=== PATIENT | male | born 1940 | race Caucasian/White ===

== ENCOUNTER → 2016-10-15 13:44 | Outpatient (CLI) | payer MEDICARE, OTHER ==
[2016-06-19 09:52] VITALS: BMI 37.9
[~2016-10-15 13:44] MED LIST: ACETAMINOPHEN500 M1 PO; BAYER CHEWABLE81 MG PO; CINNAMON500 MG PO; COREG 3.1253.125 MG PO; ELIQUIS5 MG PO; FIBER THERAPY1368 GM PO; FISH OIL 1,2001 CAP PO; GARLIC PO; GARLIC1 CAP PO; GLIMEPIRIDE4 MG PO; GLUCOPHAGE1000 MG PO; GLUCOPHAGE500 MG PO; GLUCOTROL 5 MG T5 MG PO; HCTZ25 MG PO; HEMOCYTE PLUS C1 CAP PO; HUMALOG MIX 75/10 ML SC; HUMALOG MIX 75/23 ML SC; HYDROCHLOROTH12.5 M1; HYDROCHLOROTH12.5 M1 PO; HYDROCODONE-APA1 TAB PO; LASIX40 MG PO; LIPITOR40 MG PO; LOPRESSOR25 MG PO; PRAVACHOL20 MG PO; SAW PALMETTO450 MG PO; VITAMIN B-121000 MCG PO; VITAMIN D2000 UNIT PO; ZESTRIL10 MG PO; ZESTRIL40 MG PO; ZINC30 MG PO
[2016-10-15 15:02] LABS: ANION GAP 9.7 mmol/L (8-16); CALCIUM 9.1 mg/dL (8.5-10.1); CREATININE - SERUM 1.2 mg/dL (0.6-1.3); POTASSIUM - SERUM 3.7 mmol/L (3.5-5.1)
== END | disposition home or self-care (01) ==
LOC: D.RAD 13:44
PROVIDERS: Internal Medicine Interventional Cardiology
DX: I10 Essential (primary) hypertension (principal)

== ENCOUNTER 2016-10-24 05:27 | Outpatient (CLI) | payer MEDICARE, OTHER ==
[~2016-10-24] VITALS: Ht 195.6 cm; Wt 136.4 kg
[~2016-10-24 05:27] MED LIST changes: -LASIX40 MG PO
[2016-10-24] MEDS ORDERED: LASIX40 MG PO (06:37)
[2016-10-24 06:46] VITALS: BP 127/66; Ht 195.6 cm; Wt 136.4 kg
[2016-10-24 07:03] LABS: CALC OSMOLALITY 287 mosm/kg (275-300); CARBON DIOXIDE 31.1 mmol/L (21.0-32.0); CHLORIDE - SERUM 103 mmol/L (98-107); POTASSIUM - SERUM 3.8 mmol/L (3.5-5.1); SODIUM 143 mmol/L (136-145); UREA NITROGEN 14 mg/dL (7-18); eGFR NON AFRICAN AMERICAN 78 mL/min (90-120)
[2016-10-24 07:04] LABS: BASOPHILS 0.7 % (0.0-2.0); EOSINOPHILS 5.6 % (0-7); GLUCOSE 139 mg/dL (74-106); HEMATOCRIT 40.2 % (42.0-54.0); HEMOGLOBIN 12.5 g/dL (13.5-17.5); LYMPHOCYTES 24.8 % (15-50); MCH 26.9 pg (26.0-34.0); MCHC 31.1 g/dL (31.0-37.0); MCV 86.6 fL (80.0-100.0); MEAN PLATELET VOLUME 10.3 fL (7.4-10.4); MONOCYTES 12.1 % (2-11); NEUTROPHILS 56.8 % (40-80); RBC 4.64 10x6/uL (4.20-6.10); RDW 15.5 % (11.5-14.5); WBC 6.1 10x3/uL (4.8-10.8)
[2016-10-24 07:07] LABS: INR 1.12 (0.85-1.17); PROTIME 14.3 SECONDS (11.6-15.0)
[2016-10-24 07:08] LABS: APTT 30.5 SECONDS (22.8-39.4)
[2016-10-24 07:09] LABS: PLATELET COUNT 186 10x3/uL (130-400)
--- NOTE | 2016-10-24 09:15 | NUR ---
NO PROCEDURE OR MEDS GIVEN IN IR. SPOKE WITH MOISES BRAVO CONCERNING DC ORDERS, ORDERS RECEIVED. IV REMOVED INTACT.
--- NOTE | 2016-10-24 09:35 | NUR ---
DISCHARGED HOME WITH FAMILY.
== END 2016-10-24 09:35 | disposition home or self-care (01) ==
LOC: D.OPS 05:27 → D.SP 08:00 → D.OPS 08:00
PROVIDERS: General Practice
DX: J90 Pleural effusion, not elsewhere classified (principal); Z53.9 Procedure and treatment not carried out, unspecified reason

== ENCOUNTER → 2016-10-29 07:32 | Outpatient (CLI) | payer MEDICARE, OTHER ==
[2016-10-24 06:46] VITALS: BMI 35.6
[~2016-10-29 07:32] MED LIST changes: +LASIX40 MG PO
== END | disposition home or self-care (01) ==
LOC: D.RT 07:32
DX: R06.00 Dyspnea, unspecified (principal)

== ENCOUNTER → 2016-11-29 09:28 | Outpatient (CLI) | payer MEDICARE, OTHER ==
[2016-10-24 06:46] VITALS: BMI 35.6
== END | disposition home or self-care (01) ==
LOC: D.US 09:28
DX: I25.10 Atherosclerotic heart disease of native coronary artery without angina pectoris (principal); I10 Essential (primary) hypertension; E78.5 Hyperlipidemia, unspecified; Z87.891 Personal history of nicotine dependence

== ENCOUNTER → 2016-12-30 08:03 | Outpatient (CLI) | payer MEDICARE, OTHER ==
[2016-10-24 06:46] VITALS: BMI 35.6
--- NOTE | ~2016-12-30 | EC ---
PATIENT:JOHNY LECHUGA DATE OF SERVICE: 12/30/16 SEX: M MEDICAL RECORD: [id number] DATE OF : 44 LOCATION:[facility] AGE OF PATIENT: 76 ADMISSION DATE: 12/30/16 REFERRING PHYSICIAN: INTERPRETING PHYSICIAN: LIZZIE LÓPEZ MD ECHOCARDIOGRAM REPORT ECHO CHARGES 4 ECHO COMPLETE CLINICAL DIAGNOSIS: HTN ECHOCARDIOGRAPHIC MEASUREMENTS (adult normal given) AC root (d.<3.7cm) 4.0 LV Septum d (<1.2 cm> 1.3 Valve Excursion 1.6 LV Septum (systole) 2.1 Left Atria (s.<4.0cm> 4.8 LVPW d(<1.2cm) 1.3 RV (d.<2.3cm) 3.7 LVPW (sytole) 1.8 LV diastole(<5.6CM) 5.9 MV E-F(>70mm/sec) LV systole 4.7 LVOT Diameter 2.0 MV exc.(>10mm) Est.ejection fraction (50-75%) Pericardial Effusion N DOPPLER: LVIT A E 84.0 LA RVSP 39.0 LVOT 91.0 AOP1/2T Asc. Ao 161 RVOT 58.0 RA PA 68.0 AV Gradient Peak 10.4 AV Mean 4.7 AV Area 1.7 MV Gradient Peak 5.1 MV Mean 1.5 MV Area COMMENTS: Structural Steel Shop Supervisor: Karri DUMAS Billet Sawyer:Oliverio Cabrera TAPE# PACS DATE OF SERVICE: 12/30/2016 Echocardiogram FINDINGS: 1. Left ventricular chamber size is mildly dilated. Left ventricular systolic function is preserved. Overall ejection fraction estimated at 55%. 2. Left atrium is enlarged at 4.8 cm. Right atrium and right ventricular chamber sizes are as well mildly dilated. 3. Valvular structures have normal structure and motion. ECHOCARDIOGRAM REPORT [id number] JOHNY LECHUGA 4. Doppler interrogation reveals moderate mitral regurgitation, mild to moderate tricuspid regurgitation, no other valvular insufficiency or stenosis. Pulmonary systolic pressure is estimated at 39 mmHg. 5. No evidence of pericardial effusion or left ventricular thrombus. TRANSINT:[id number] Voice Confirmation ID: [id number] DOCUMENT ID: [id number] LIZZIE LÓPEZ MD CC: [id number] DICTATION DATE: 12/31/16 1128 NOTARY PUBLIC: 01/01/17 0203 DEP CLI 12/30/16 [facility] [address] [place] [address]
== END | disposition home or self-care (01) ==
LOC: D.ECHO 08:03
DX: I10 Essential (primary) hypertension (principal)

== ENCOUNTER → 2017-01-17 08:18 | Outpatient (CLI) | payer MEDICARE, OTHER ==
[2016-10-24 06:46] VITALS: BMI 35.6
[2017-01-17 10:04] LABS: ERYTHROCYTE SEDIMENTATION RATE 3 mm/hr (0-20)
[2017-01-20 09:09] LABS: ANA REFLEX - DIRECT Negative (Negative)
== END | disposition home or self-care (01) ==
LOC: D.RAD 08:18
PROVIDERS: Internal Medicine Pulmonary Disease
DX: J45.909 Unspecified asthma, uncomplicated (principal)

== ENCOUNTER → 2018-03-10 08:46 | Outpatient (CLI) | payer MEDICARE, OTHER ==
[2016-10-24 06:46] VITALS: BMI 35.6
[~2018-03-10 08:46] MED LIST changes: +K-TAB10 MEQ PO; +LISINOPRIL5 MG PO
== END | disposition home or self-care (01) ==
LOC: D.ECHO 08:46
DX: I25.10 Atherosclerotic heart disease of native coronary artery without angina pectoris (principal); I48.91 Unspecified atrial fibrillation; I50.9 Heart failure, unspecified; Z95.1 Presence of aortocoronary bypass graft; R06.02 Shortness of breath

== ENCOUNTER 2018-03-26 07:02 | Outpatient (CLI) | payer MEDICARE, OTHER ==
[~2018-03-26] VITALS: Ht 195.6 cm; Wt 144.1 kg
--- NOTE | ~2018-03-26 | TEE ---
PATIENT:JOHNY LECHUGA MEDICAL RECORD: [id number] LOCATION:[facility] AGE OF PATIENT: 77 ADMISSION DATE: 03/26/18 SEX: M REFERRING PHYSICIAN: INTERPRETING PHYSICIAN: FARA JOHNSON MD TRANSESOPHAGEAL ECHOCARDIOGRAM Date: 03/26/18 GRACIE CHARGE Y INDICATIONS: ATRIAL FIB, ASSESS FOR CLOTS PRE-CARDIOVERSION PREMEDICATIONS: PATIENT'S RESPONSE PROCEDURE DOPPLER MEASUREMENTS: LVIT LA PA RA LVOT RVOT Asc. Ao AV Gradient Peak AV Mean AV Area MV Gradient Peak MV Mean MV Area INTERPRETATION: Doppler: 2-D: NO CLOTS NOTED COLOR FLOW DOPPLER NORMAL SALINE STUDY: MISCELLANOUS: DIAGNOSIS: PLAN: Heart Nurse:4 Dr. Johnson Aquatics Instructor: Rizwana MONTES DE OCA COMMENTS: DATE OF SERVICE: PROCEDURE: Transesophageal echocardiogram. He was brought into the cardiac catheterization lab where a transesophageal echo probe was placed with the assistance of anesthesia. The patient's left atrium and left atrial appendage were visualized pre-cardioversion. There was shown to be no clots. The patient had no evidence of spontaneous echo contrast. The procedure was terminated to proceed with cardioversion. Cardioversion was then TRANSESOPHAGEAL ECHOCARDIOGRAM REPORT [id number] JOHNY LECHUGA performed times 3, each time resulting in reversion to sinus rhythm, but then ultimately converting back into atrial fibrillation. TRANSINT:[id number] Voice Confirmation ID: [id number] DOCUMENT ID: [id number] at 1702 CC: [id number] DICTATION DATE: 04/06/18 0814 HOUSEKEEPER/CUSTODIAN/LAUNDRY WORKER: 04/06/18 1200 DEP CLI 03/26/18 [place] [id number] [place] [id number]
--- NOTE | ~2018-03-26 | HEMODYNAMI ---
PATIENT:JOHNY LECHUGA MEDICAL RECORD: [id number] : 44 LOCATION:D.CAT ADMISSION DATE: 03/26/18 Generatedon:03/26/20189:36 Patient name: JOHNY LECHUGA Patient #: [id number] SSN: : 1940 Date of study: 03/26/2018 Page: Of Hemodynamic Procedure Report Patient Data Patient Demographics Procedure consent was obtained First Name: JOHNY Gender: Male Last Name: ALEXANDREA : 1940 [facility] Initial: C Age: 77 year(s) Patient #: [id number] Race: Additional ID: [id number] Contact details Address: [address] [place] [address] State: [place] City: [facility] [place] Zip code: [address] Past Medical History Allergies: No known allergies Admission Admission Data Admission Date: 03/26/2018 Admission Time: 7:02 Procedure Procedure Types Cath Procedure Diagnostic Procedure Cardioversion External GRACIE Procedure Description Procedure Date Procedure Date: 03/26/2018 Procedure Start Time: 9:19 Procedure End Time: 9:36 Procedure Staff Name Function Aj Rodrigues MD Performing Physician Bassam Canales MD Additional personnel Juan Lomeli RN Nurse Brian Douglass RT Monitor Percy [employer]on Ret[employer] Counselor Procedure Data Cath Procedure Fluoroscopy Diagnostic fluoroscopy Total fluoroscopy Time: 0 time: 0 min min Diagnostic fluoroscopy Total fluoroscopy dose: 0 dose: 0 mGy mGy Contrast Material Contrast Material Type Amount (ml) Isovue 300 0 Estimated blood loss: 0 ml Procedure Complications No complications Hemodynamics Rest Heart Rate: 72 (bpm) Snapshots Pre Cath Intra NCS Post Cath Vital Signs Time Heart Resp SPO2 etCO2 NIBP (mmHg) Rhythm Pain Sedation Rate (ipm) (%) (mmHg) Status Level (bpm) 9:12:02 80 11 97 0 148/96(127) NSR 0 (11) 10(A) , No pain 9:16:32 74 19 99 38.1 139/97(124) NSR 0 (11) 10(A) , No pain 9:20:56 84 31 99 47.8 113/89(100) NSR 0 (11) 10(A) , No pain 9:25:08 78 23 100 11.2 133/106(118) NSR 0 (11) 10(A) , No pain 9:29:32 79 19 100 36.6 125/87(108) NSR 0 (11) 10(A) , No pain 9:33:52 71 14 99 33.6 130/87(118) NSR 0 (11) 10(A) , No pain Procedure Log Time Note 8:45:45 Juan Lomeli RN sent for patient. Start room use. 9:03:57 Patient arrived from Pre/Post Procedure Room to CCL 3. Patient remains on bed/stretcher for procedure. 9:10:25 Time tracking: Regular hours (M-F 7:00 - 5:00) 9:10:29 Plan of Care:Hemodynamics will remain stable., Cardiac rhythm will remain stable., Comfort level will be maintained., Respiratory function will remain adequate., Patient/ family verbilizes understanding of procedure., Procedure tolerated without complication., Recovers from procedure without complications.. 9:10:31 Warm blankets applied, and tamiko hugger turned on for patient comfort. 9:10:32 Correct patient and procedure confirmed by team. 9:10:33 Signed procedure consent form obtained from patient. 9:10:33 ECG and BP/O2 sat monitors applied to patient. 9:10:35 Vital chart was started 9:10:41 [facility] Speech And Drama Teacher present for GRACIE. 9:10:43 Baseline sample Acquired. 9:10:49 Rhythm: atrial fibrillation 9:10:50 Full Disclosure recording started 9:11:06 H&P Date Dictated: 03/04/2018 Within 30 days and on chart., H&P Addendum completed by physician on day of procedure. (MUST COMPLETE FOR ALL OUTPATIENTS). 9:11:07 Pre-procedure instructions explained to patient. 9:11:07 Pre-op teaching completed and patient verbalized understanding. 9:11:10 Family in patients room. 9:11:12 Patient NPO since Midnight. 9:11:14 Is the patient allergic to Iodine/contrast media? No. 9:11:15 Is patient on blood thinner?Yes 9:11:18 ACC The patient was administered the following blood thiners within the last 24 hours: Coumadin 9:11:19 Patient diabetic? Yes. 9:11:21 If diabetic: On Metformin? Unknown 9:11:23 Previous problem with sedation/anesthesia? No ? 9:11:25 Snore? Yes 9:11:25 Sleep apnea? Yes 9:11:27 Deviated septum? No 9:11:27 Opens mouth fully? Yes 9:11:28 Sticks out tongue? Yes 9:11:51 Airway obstruction? Yes Asthma 9:11:56 Dentures? Yes OUT 9:12:01 Patient pain scale 0/10 ?. 9:12:04 IV patent on arrival in left forearm with 0.9% NaCl at O. 9:12:06 Lab results completed and on chart. 9:12:08 Alarms reviewed by RCastro N. 9:17:27 Bassam Canales MD present and monitoring patient for TIVA. 9:17:38 Quick combo pads placed on patients chest and back. 9:20:08 --------ALL STOP TIME OUT------ 9:20:09 Final Timeout: patient, procedure, and site verified with staff and physician. All members of the team are in agreement. 9:20:21 Physical assessment completed. ASA score P 2 - A patient with mild systemic disease as per Aj Rodrigues MD. 9:20:24 Sedation plan: TIVA Medication:Propofol 9:20:29 Procedure started. 9:20:32 GRACIE started. 9:22:55 GRACIE completed. 9:23:18 Defibrillator synced and charged to 250 Joules. 9:23:19 Shock delivered. 9:23:22 Unsuccessful cardioversion. 9:23:50 Defibrillator synced and charged to 300 Joules. 9:23:51 Shock delivered. 9:23:52 Unsuccessful cardioversion. 9:24:30 Defibrillator synced and charged to 300 Joules. 9:24:32 Shock delivered. 9:24:35 Pt converted to Sinus rhythm for approximately 45 seconds, then returned to Atrial Fib. 9:24:35 Unsuccessful cardioversion. 9:26:26 Procedure ended.(Physican Out) 9:28:00 Fluoroscopy time 00.00 minutes. 9:28:01 Fluoroscopy dose: 0 mGy 9:28: Flurop Dose total: 0 9:28:02 Contrast amount:Isovue 300 0ml. 9:28:08 Post-procedure physical assessment completed. ASA score P 2 - A patient with mild systemic disease as per Aj Rodrigues MD. 9:28:12 Post procedure rhythm: atrial fibrillation 9:28:14 Estimated blood loss: 0 ml 9:28:16 Post procedure instruction explained to patient.Patient verbalizes understanding. 9:28:16 Patient needs reinforcement of post procedure teaching. 9:28:27 Procedure type changed to Cath procedure, Diagnostic procedure, Cardioversion External, GRACIE 9:30:52 Quick Combo opened to sterile field. 9:31:19 Procedure Complication : No complications 9:32:15 Procedure and supply charges have been captured, reviewed, submitted and are correct. 9:36:11 Vital chart was stopped 9:36:11 See physician's report for complete and final results. 9:36:14 Report given to Pre/Post Procedure Room. 9:36:18 Patient transfered to Pre/Post Procedure Room with Stretcher. 9:36:21 Procedure ended. 9:36:21 Full Disclosure recording stopped 9:36:35 End room use (Document Last) Device Usage Item Manufacture Quantity Catalog Hospital Part Current Minimal Lot# / Name Number Charge Number Stock Stock Livia al# Code [employer] 1 [id number] Combo Signature Audit [place] Stage Time Signature Unsigned Intra-Procedure 03/26/2018 Brian Douglass 9:36:52 AM RT(R) Signatures Monitor : Brian Douglass RT Signature : Date : Time : [facility] [address] [facility] [place] [address]
--- NOTE | ~2018-03-26 | EC ---
PATIENT:JOHNY LECHUGA DATE OF SERVICE: SEX: M MEDICAL RECORD: [id number] DATE OF : 42 LOCATION:D.CAT AGE OF PATIENT: 77 ADMISSION DATE: 03/16/18 REFERRING PHYSICIAN: INTERPRETING PHYSICIAN: FARA JOHNSON MD ECHOCARDIOGRAM REPORT ECHO CHARGES Date: CLINICAL DIAGNOSIS: ECHOCARDIOGRAPHIC MEASUREMENTS (adult normal given) AC root (d.<3.7cm) cm LV Septum d (<1.2 cm> cm Valve Excursion cm LV Septum (systole) cm Left Atria (s.<4.0cm> cm LVPW d(<1.2cm) cm RV (d.<2.3cm) cm LVPW (sytole) cm LV diastole(<5.6CM) cm MV E-F(>70mm/sec) cm LV systole cm LVOT Diameter cm MV exc.(>10mm) cm Est.ejection fraction (50-75%) % DOPPLER: LVIT cm/sec A cm/sec E cm/sec LA cm/sec RVSP mmHg LVOT cm/sec AOP1/2T m/s Asc. Ao cm/sec RVOT cm/sec RA cm/sec PA cm/sec AV Gradient Peak mmHg AV Mean mmHg AV Area cm MV Gradient Peak mmHg MV Mean mmHg MV Area cm COMMENTS: Prevention Specialist: Operations Intelligence: MELANI# Pericardial Effusion DATE OF SERVICE: PROCEDURE: Transthoracic echocardiogram. FINDINGS: 1. Difficult pictures to image. 2. The overall ejection fraction appears near normal. Endocardial structures not well visualized. The ejection fraction appears to be 50% to 55%. No obvious regional wall motion abnormalities. 3. The left atrium is moderately dilated. ECHOCARDIOGRAM REPORT [id number] JOHNY LECHUGA 4. The aortic valve appears to be grossly normal with some sclerosis. Overall, there appears to be no obvious valvular or structural issues, but again it was difficult to visualize. RVSP was normal. The patient appears to have some evidence of hypertensive heart disease and there is evidence of possible anterior septal hypokinesis, but again it would be great to have contrasted echo to see the left ventricle better. Further evaluation may be needed for optimal visualization of the patient's endocardial structures. TRANSINT:[id number] Voice Confirmation ID: [id number] DOCUMENT ID: [id number] FARA JOHNSON MD at 0746 CC: [id number] DICTATION DATE: 03/16/18 1048 NUCLEAR EQUIPMENT TEST ENGINEER: 03/16/18 1301 PRE [facility] [address] [place] [id number]
[~2018-03-26 07:02] MED LIST changes: -K-TAB10 MEQ PO; -LISINOPRIL5 MG PO
[2018-03-26] MEDS ORDERED: LISINOPRIL5 MG PO (07:28)
[2018-03-26] MEDS ORDERED: K-TAB10 MEQ PO (07:31)
[2018-03-26 07:43] LABS: BASOPHILS 0.5 % (0-2); HEMATOCRIT 41.3 % (42.0-54.0); HEMOGLOBIN 13.6 g/dL (13.5-17.5); IMMATURE GRANULOCYTES 0.3 % (0-5); LYMPHOCYTES 26.3 % (15-50); MCH 29.8 pg (26.0-34.0); MCHC 32.9 g/dL (31.0-37.0); MCV 90.4 fL (80.0-100.0); MEAN PLATELET VOLUME 9.9 fL (7.4-10.4); MONOCYTES 11.5 % (2-11); NEUTROPHILS 58.4 % (40-80); PLATELET COUNT 148 10x3/uL (130-400); RBC 4.57 10x6/uL (4.20-6.10); RDW 14.3 % (11.5-14.5); WBC 5.7 10x3/uL (4.8-10.8)
[2018-03-26 07:44] VITALS: BP 146/73; Ht 195.6 cm; Wt 144.1 kg
[2018-03-26 07:55] LABS: INR 2.11 (0.85-1.17)
[2018-03-26 07:56] LABS: CALC OSMOLALITY 288 mosm/kg (275-300); CALCIUM 8.4 mg/dL (8.5-10.1); CARBON DIOXIDE 30.3 mmol/L (21.0-32.0); CHLORIDE - SERUM 105 mmol/L (98-107); GLUCOSE 113 mg/dL (74-106); POTASSIUM - SERUM 3.9 mmol/L (3.5-5.1); SODIUM 145 mmol/L (136-145); UREA NITROGEN 11 mg/dL (7-18); eGFR NON AFRICAN AMERICAN 77 mL/min (90-120)
== END 2018-03-26 11:40 | disposition home or self-care (01) ==
LOC: D.CATH 07:02
PROVIDERS: Internal Medicine Cardiovascular Disease
DX: I48.91 Unspecified atrial fibrillation (principal); I25.10 Atherosclerotic heart disease of native coronary artery without angina pectoris; I50.9 Heart failure, unspecified; R06.02 Shortness of breath; Z95.1 Presence of aortocoronary bypass graft

== ENCOUNTER → 2018-04-08 16:49 | Outpatient (CLI) | payer MEDICARE, OTHER ==
[2018-03-26 07:44] VITALS: BMI 37.7
[~2018-04-08 16:49] MED LIST changes: +K-TAB10 MEQ PO; +LISINOPRIL5 MG PO
[2018-04-08 17:50] LABS: ANION GAP 9.8 mmol/L (8-16); CALCIUM 8.6 mg/dL (8.5-10.1); CREATININE - SERUM 1.1 mg/dL (0.6-1.3); POTASSIUM - SERUM 3.8 mmol/L (3.5-5.1)
== END | disposition home or self-care (01) ==
LOC: D.LABREF 16:49
PROVIDERS: Internal Medicine Cardiovascular Disease
DX: I25.10 Atherosclerotic heart disease of native coronary artery without angina pectoris (principal)

== ENCOUNTER → 2018-04-15 14:12 | Outpatient (CLI) | payer MEDICARE, OTHER ==
[2018-03-26 07:44] VITALS: BMI 37.7
== END | disposition home or self-care (01) ==
LOC: D.MRI 14:12
DX: R20.2 Paresthesia of skin (principal)

== ENCOUNTER 2018-09-09 19:18 | Inpatient (IN) | payer MEDICARE, BC ==
[~2018-09-09] VITALS: Ht 195.6 cm; Wt 148.6 kg
--- NOTE | ~2018-09-09 | EC ---
PATIENT:JOHNY LECHUGA DATE OF SERVICE: 09/09/18 SEX: M MEDICAL RECORD: [id number] DATE OF : 42 LOCATION:D. D.120 AGE OF PATIENT: 77 ADMISSION DATE: 09/09/18 REFERRING PHYSICIAN: INTERPRETING PHYSICIAN: LIZZIE PICKARD MD ECHOCARDIOGRAM REPORT ECHO CHARGES 5 ECHO LIMITED Date: 09/11/18 CLINICAL DIAGNOSIS: AFIB HX OF CAD/CABG ECHOCARDIOGRAPHIC MEASUREMENTS (adult normal given) AC root (d.<3.7cm) cm LV Septum d (<1.2 cm> cm Valve Excursion cm LV Septum (systole) cm Left Atria (s.<4.0cm> 4.6 cm LVPW d(<1.2cm) cm RV (d.<2.3cm) 4.6 cm LVPW (sytole) cm LV diastole(<5.6CM) 5.1 cm MV E-F(>70mm/sec) cm LV systole 3.7 cm LVOT Diameter cm MV exc.(>10mm) cm Est.ejection fraction (50-75%) % DOPPLER: LVIT cm/sec A 20.0 cm/sec E 95.0 cm/sec LA cm/sec RVSP 24 mmHg LVOT 83 cm/sec AOP1/2T m/s Asc. Ao 110 cm/sec RVOT cm/sec RA cm/sec PA cm/sec AV Gradient Peak 4.86 mmHg AV Mean 2.68 mmHg AV Area 3.2 cm MV Gradient Peak 4.59 mmHg MV Mean 1.48 mmHg MV Area cm COMMENTS: Ordnance Engineer: Rizwana MONTES DE OCA Mfts: 1 Dr. Pickard TAPE# PACS Pericardial Effusion N DATE OF SERVICE: 09/11/2018 ECHOCARDIOGRAM DATE OF SERVICE: 09/11/2018 FINDINGS: 1. Left ventricle chamber size is within normal limits. Left ventricular systolic function is normal. Overall ejection fraction estimated at 60%. 2. Left atrium is enlarged at 4.6 cm. Right atrium and right ventricular ECHOCARDIOGRAM REPORT [id number] JOHNY LECHUGA chamber sizes are as well mildly dilated. 3. Valvular structures have normal structure and motion. 4. Doppler interrogation reveals trace tricuspid regurgitation, no other valvular insufficiency or stenosis. 5. No evidence of pericardial effusion or left ventricular thrombus. TRANSINT:[id number] Voice Confirmation ID: [id number] DOCUMENT ID: [id number] LIZZIE PICKARD MD CC: [id number] DICTATION DATE: 09/11/18 1547 CERTIFIED CODING SPECIALIST: 09/11/18 214 ADM IN [place] [address] [place] [id number]
[2018-09-09] MEDS ORDERED: JANTOVEN10 MG PO (19:30)
[2018-09-09] MEDS ORDERED: ENTRESTO 24 MG1 EACH PO (19:31)
[2018-09-09] MEDS ORDERED: COLACE100 MG PO (19:31)
[2018-09-09] MEDS ORDERED: COREG12.5 MG PO (19:32)
[2018-09-09 20:04] LABS: BASOPHILS 0.1 % (0-2); EOSINOPHILS 0.3 % (0-7); HEMATOCRIT 46.3 % (42.0-54.0); HEMOGLOBIN 15.1 g/dL (13.5-17.5); IMMATURE GRANULOCYTES 0.4 % (0-5); MCH 29.8 pg (26.0-34.0); MCHC 32.6 g/dL (31.0-37.0); MCV 91.3 fL (80.0-100.0); MEAN PLATELET VOLUME 10.6 fL (7.4-10.4); MONOCYTES 6.9 % (2-11); NEUTROPHILS 85.3 % (40-80); PLATELET COUNT 167 10x3/uL (130-400); RBC 5.07 10x6/uL (4.20-6.10); RDW 14.1 % (11.5-14.5); WBC 13.4 10x3/uL (4.8-10.8)
[2018-09-09 20:31] LABS: ALBUMIN 3.7 g/dL (3.4-5.0); ALKALINE PHOSPHATASE 73 U/L (46-116); ALT (SGPT) 26 U/L (10-68); BILIRUBIN - TOTAL 1.92 mg/dL (0.2-1.3); CALCIUM 8.7 mg/dL (8.5-10.1); CARBON DIOXIDE 28.9 mmol/L (21.0-32.0); CHLORIDE - SERUM 101 mmol/L (98-107); CREATININE - SERUM 1.1 mg/dL (0.6-1.3); POTASSIUM - SERUM 3.6 mmol/L (3.5-5.1); PROTEIN - SERUM 7.2 g/dL (6.4-8.2); SODIUM 142 mmol/L (136-145); UREA NITROGEN 14 mg/dL (7-18); eGFR NON AFRICAN AMERICAN 69 mL/min (90-120)
[2018-09-09 20:50] LABS: AMYLASE - SERUM 2314 U/L (25-115)
[2018-09-09 20:51] LABS: CALC OSMOLALITY 291 mosm/kg (275-300); GLUCOSE 236 mg/dL (74-106); LIPASE 11695 U/L (73-393); TROPONIN-I < 0.017 ng/mL (0.000-0.060)
[2018-09-09 21:03] VITALS: BP 183/95
[2018-09-09 22:50] LABS: APPEARANCE CLEAR (CLEAR); BILIRUBIN NEGATIVE (NEGATIVE); COLOR YELLOW (YELLOW); GLUCOSE 50 mg/dL (NEGATIVE); KETONE MODERATE mg/dL (NEGATIVE); NITRITE NEGATIVE (NEGATIVE); PROTEIN TRACE mg/dL (NEGATIVE); SPECIFIC GRAVITY 1.015 (1.005-1.020); UROBILINOGEN NORMAL (NORMAL)
[2018-09-10] VITALS: BP 170/87
--- NOTE | 2018-09-10 00:05 | NUR ---
NEW ADMIT TO DOCTOR SUNSHINE ON MED 3 FROM [facility] FOR ACUTE PANCREATITIS. PATIENT TRANSPORTED VIA STRETCHER. ACCOMPANIED BY ED STAFF. PATIENT ASSISTED IN TRANSFER TO BED. IV TO RIGHT FA INFUSING NS @ 100 ML/HR. PATIENT DENIES HAVING ANY NEEDS OR PAIN AT THIS TIME. PATIENT ORIENTED TO ROOM AND CALL LIGHT SYSTEM. PATIENT COOPERATIVE WITH ADMISSION ASSESSMENTS. BED IN LOWEST POSITION. SIDE RAILS UP. CALL LIGHT IN REACH. CONTINUE PLAN OF CARE.
[2018-09-10 00:24] VITALS: BP 170/87; BMI 38.0
--- NOTE | 2018-09-10 04:30 | NUR ---
PATIENT RESTING IN BED WITH EYES CLOSED. NO SIGNS OF DISTRESS. BED IN LOWEST POSITION. SIDE RAILS UP. CALL LIGHT IN REACH. CONTINUE PLAN OF CARE.
[2018-09-10 05:13] VITALS: BP 174/90
--- NOTE | 2018-09-10 07:15 | NUR ---
AM ROUNDS COMPLETED. INTRODUCED MYSELF TO PT PRIMARY RN FOR TODAYS SHIFT. SHIFT ASSESSMENT COMPLETED. PT IS A&O BUT NOT FEELING WELL AT ALL. PT STATES HE HAS BEEN THROWING UP ALL NIGHT AND IN A LOT OF PAIN. NO ORDERS FOR PAIN OR NAUSEA RELIEF ON EMAR. PT ALSO HAS HAD HTN ALL NIGHT AND THIS MORNING BP OF 190/107. PAGED PRIMARY AND NEW ORDERS REC'D WILL CPOC.
[2018-09-10 07:20] LABS: ALBUMIN 3.4 g/dL (3.4-5.0); ANION GAP 15.5 mmol/L (8-16); BILIRUBIN - TOTAL 2.39 mg/dL (0.2-1.3); CALCIUM 8.3 mg/dL (8.5-10.1); CARBON DIOXIDE 27.3 mmol/L (21.0-32.0); CREATININE - SERUM 1.3 mg/dL (0.6-1.3); MAGNESIUM - SERUM 1.7 mg/dL (1.8-2.4); PHOSPHOROUS 3.4 mg/dL (2.5-4.9); PROTEIN - SERUM 6.8 g/dL (6.4-8.2)
[2018-09-10 07:21] LABS: POTASSIUM - SERUM 4.8 mmol/L (3.5-5.1)
[2018-09-10 07:30] LABS: BASOPHILS 0.1 % (0-2); EOSINOPHILS 0 % (0-7); HEMATOCRIT 49.1 % (42.0-54.0); HEMOGLOBIN 16.1 g/dL (13.5-17.5); IMMATURE GRANULOCYTES 0.2 % (0-5); MCHC 32.8 g/dL (31.0-37.0); MCV 91.6 fL (80.0-100.0); MONOCYTES 6.5 % (2-11); NEUTROPHILS 88.2 % (40-80); PLATELET COUNT 187 10x3/uL (130-400); RBC 5.36 10x6/uL (4.20-6.10); RDW 14.4 % (11.5-14.5); WBC 15.7 10x3/uL (4.8-10.8)
[2018-09-10 07:47] VITALS: BP 190/107
--- NOTE | 2018-09-10 07:55 | NUR ---
LAB CALLED CRITICAL RESULTS. PTS AMYLASE AND LIPASE HOWEVER THEY ARE TRENDING DOWN. THIS IS EXPECTED WITH PTS DX OF PANCREATITIS. NOTIFIED PRIMARY, NO NEW ORDERS WILL CTM.
--- NOTE | 2018-09-10 09:57 | NUR ---
PTS HOME MEDS HAVE BEEN ORDERED. PAGED PHARMACY AND WAITING ON THEM TO BRING THEM UP. PT VOICED THANKS AND STATES THE PAIN MEDICATION HELP ALONG WITH THE NAUSEA. NO CURRENT NEEDS. WILL CTM.
[2018-09-10 10:04] LABS: CHOL - HDL RATIO 3.8 ratio (2.3-4.9); LDL-HDL RATIO 2.4 ratio (1.5-3.5)
--- NOTE | 2018-09-10 10:17 | NUR ---
NOTED AN ORDER FOR TELEMETRY MONITER HOWEVER ITS NOT ON PT. CALLED MONITER TECH AND JOSE STATES "WE DONT HAVE ANY" WILL NOTIFY PRIMARY AND FIND OUT IF ITS ABSOLUTELY NEEDED OR NOT.
[2018-09-10 10:25] LABS: APTT 41.5 SECONDS (22.8-39.4); INR 3.52 (0.85-1.17); PROTIME 34.5 SECONDS (11.6-15.0)
[2018-09-10 11:16] VITALS: BP 146/94
--- NOTE | 2018-09-10 12:41 | NUR ---
FSBS 255 PROVIDED PT WITH INSULIN PER SS. PT A&O LYING BACK IN BED RESTING QUIETLY. PT IS NPO FOR US OF GALLBLADDER. PT DENIES ANY CURRENT NEEDS. WILL CTM.
[2018-09-10 13:33] VITALS: BMI 37.9
[2018-09-10 15:28] VITALS: BP 194/95
--- NOTE | 2018-09-10 15:54 | NUR ---
PTS BP BACK UP AND HYPERTENSIVE. PT IN A LOT OF PAIN AND THROWING UP AGAIN. PT REQUESTED AND WAS PROVIDED WITH PRN PAIN MEDICATION ALONG WITH NAUSEA MEDICATION. PT STILL WAITING TO GO TO ULTRASOUND. NO CURRENT NEEDS. WILL CTM.
--- NOTE | 2018-09-10 18:42 | NUR ---
PT FINALLY RESTING QUIETLY. FAMILY CAME BY AND ASSISTED HIM WITH SHOWER. PT IS STILL NPO AND HAVING INTERMITT. VOMITING AND PAIN. PT IS A CHF PT AND NOT WANTING TO STAY CONNECTED TO THE FLUIDS AND HIS BP HAS BEEN RUNNING HIGH. WILL LEAVE DISCONNECTED FOR NOW AND DISCUSS WITH PRIMARY ABOUT DECREASING. NO CURRENT NEEDS. WILL CTM.
--- NOTE | 2018-09-11 01:48 | NUR ---
PATIENT IS ALERT AND ORIENTED, NPO, CALM AND COOPERATIVE, WILL CONTINUE TO MONITOR, CONTINUE PLAN OF CARE.
[2018-09-11 03:11] VITALS: BP 170/87
[2018-09-11 04:46] VITALS: BP 130/73
[2018-09-11 07:55] LABS: BASOPHILS 0.1 % (0-2); EOSINOPHILS 0.1 % (0-7); HEMATOCRIT 50.7 % (42.0-54.0); HEMOGLOBIN 16.4 g/dL (13.5-17.5); IMMATURE GRANULOCYTES 0.4 % (0-5); LYMPHOCYTES 6.1 % (15-50); MCH 29.7 pg (26.0-34.0); MCHC 32.3 g/dL (31.0-37.0); MCV 91.8 fL (80.0-100.0); MEAN PLATELET VOLUME 11.6 fL (7.4-10.4); NEUTROPHILS 83.3 % (40-80); PLATELET COUNT 182 10x3/uL (130-400); RBC 5.52 10x6/uL (4.20-6.10); RDW 14.6 % (11.5-14.5); WBC 16.1 10x3/uL (4.8-10.8)
--- NOTE | 2018-09-11 08:17 | NUR ---
PT RESTING IN BED, EYES OPEN. NO C/O PAIN. NO S/S OF DISTRESS NOTED. PT ALERT AND ORIENTED. UP AD ROSAS. Q6 HOUR FSBS. PT ON TELEMETRY ST 121 UNCONTROLLED AFIB. IV TO RIGHT FOREARM, SL. PT NPO. PT DENIES ANYTHING AT THIS TIME. CALL LIGHT IN REACH. WILL CONTINUE TO MONITOR.
[2018-09-11 08:22] LABS: ALBUMIN 2.7 g/dL (3.4-5.0); ANION GAP 21.2 mmol/L (8-16); BILIRUBIN - TOTAL 2.72 mg/dL (0.2-1.3); CARBON DIOXIDE 22.1 mmol/L (21.0-32.0); POTASSIUM - SERUM 4.3 mmol/L (3.5-5.1); PROTEIN - SERUM 6.1 g/dL (6.4-8.2)
[2018-09-11 08:24] LABS: CREATININE - SERUM 1.7 mg/dL (0.6-1.3)
[2018-09-11 08:31] LABS: INR 4.04 (0.85-1.17); PROTIME 38.5 SECONDS (11.6-15.0)
[2018-09-11 09:09] VITALS: BP 115/73
--- NOTE | 2018-09-11 10:30 | NUR ---
PT C/O PAIN 03/17, PAIN TO ABDOMEN. GAVE DILAUDID FOR PAIN. NO S/S OF DISTRESS NOTED. PT DENIES ANYTHING FURTHER. CALL LIGHT IN REACH. WILL CONTINUE TO MONITOR.
[2018-09-11 12:36] VITALS: Ht 195.6 cm; Wt 148.6 kg
--- NOTE | 2018-09-11 13:00 | NUR ---
PT HAS NEW ORDER FOR IVP DIGOXIN. PUSHED OVER 3 MINS VIA R.FA PIV. UNCONT. A.FIB ON MONITER AT 107. APICAL PULSE 108. DISCUSSED WITH PRIMARY NURSE. NO CURRENT NEEDS. WILL CTM.
--- NOTE | 2018-09-11 13:00 | NUR ---
PT HAS NEW ORDER FOR IVP DIGOXIN. PUSHED OVER 5 MINS VIA R.FA PIV. UNCONT. A.FIB ON MONITER AT 107. APICAL PULSE 108. DISCUSSED WITH PRIMARY NURSE. NO CURRENT NEEDS. WILL CTM.
[2018-09-11 14:21] VITALS: BP 117/63
--- NOTE | 2018-09-11 15:16 | NUR ---
SECOND DOSE OF DIGOXIN GIVEN VIA R.FA PIV. PUSHED OVER 5 MINS THEN FLUSHED SLOWLY WITH NS FLUSH. PT LYING BACK IN BED RESTING QUIETLY. DENIES ANY CURRENT PAIN OR NEEDS. CL IN REACH. DISCUSSED WITH PRIMARY NURSE.
[2018-09-11 16:45] VITALS: BP 127/87
--- NOTE | 2018-09-11 18:20 | NUR ---
LAST DOSE OF DIGOXIN GIVEN TO PT. PUSHED OVER 5 MINS AND THEN FLUSHED. PTS RATE IS FINALLY CONTROLLED AND RUNNING A.FIB @98. PT RESTING QUIETLY AND DENIES ANY CURRENT PAIN OR NEEDS. CL IN REACH. WILL CTM.
--- NOTE | 2018-09-11 18:41 | NUR ---
PT RESTING IN BED, EYES CLOSED. RESPIRATIONS EVEN AND UNLABORED. NO C/O PAIN. NO S/S OF DISTRESS NOTED. PT DENIES ANYTHING FURTHER AT THIS TIME. CALL LIGHT IN REACH. WILL CONTINUE TO MONITOR.
--- NOTE | 2018-09-11 19:30 | NUR ---
PT SITTING UP ON SIDE OF BED SHORT OF BREATH. PUT PT ON 2L OF 02. SAT-95% PT STATES HE FEELS LIGHT HEADED. EDUCATED PT TO RISE AND SIT SLOWLEY. PT INSTRUCTED TO USE CALL LIGHT WHEN GETTING UP. BED LOW CALL LIGHT WITHIN REACH. WILL CONTINUE TO MONITOR.
[2018-09-12] VITALS (7 sets, daily range): BP systolic 111–148; BP diastolic 68–90
--- NOTE | 2018-09-12 03:50 | NUR ---
PT ASLEEP RESP EVEN AND UNLABORED. BEDLOW AND CALL LIGHT IN REACH. PT WILL CALL FOR ASSIST WHEN NEEDED. WILL CPOC
--- NOTE | 2018-09-12 04:25 | NUR ---
PT RESTING ON SIDE WITH 2L OF O2 SAT. 98% PT RESPIRATIONS EVEN AND UNLABORED. BED LOW CALL LIGHT WITHIN REACH. WILL CONTINUE TO MONITOR.
[2018-09-12 07:34] LABS: BASOPHILS 0.1 % (0-2); EOSINOPHILS 0.2 % (0-7); HEMATOCRIT 48.2 % (42.0-54.0); HEMOGLOBIN 15.7 g/dL (13.5-17.5); IMMATURE GRANULOCYTES 0.2 % (0-5); LYMPHOCYTES 9.2 % (15-50); MCH 29.7 pg (26.0-34.0); MCHC 32.6 g/dL (31.0-37.0); MCV 91.1 fL (80.0-100.0); MEAN PLATELET VOLUME 11.2 fL (7.4-10.4); MONOCYTES 13.7 % (2-11); NEUTROPHILS 76.6 % (40-80); PLATELET COUNT 167 10x3/uL (130-400); RBC 5.29 10x6/uL (4.20-6.10); RDW 14.5 % (11.5-14.5)
[2018-09-12 07:37] LABS: WBC 11.7 10x3/uL (4.8-10.8)
[2018-09-12 07:52] LABS: ALBUMIN 2.6 g/dL (3.4-5.0); ANION GAP 17.8 mmol/L (8-16); BILIRUBIN - TOTAL 3.3 mg/dL (0.2-1.3); CALCIUM 8.1 mg/dL (8.5-10.1); CARBON DIOXIDE 25.4 mmol/L (21.0-32.0); CREATININE - SERUM 1.6 mg/dL (0.6-1.3); POTASSIUM - SERUM 4.2 mmol/L (3.5-5.1)
[2018-09-12 07:56] LABS: INR 2.51 (0.85-1.17); PROTIME 26.3 SECONDS (11.6-15.0)
--- NOTE | 2018-09-12 19:45 | NUR ---
REPORTS THROBBING HEADACHE WHEN SITTING UP, SOMETIMES ACCOMPANIED BY DIZZINESS. INSTRUCTED PT TO CHANGE POSITIONS SLOWLY. AND PRESS CALL LIGHT WHEN NEEDING ASSISTANCE TO AMBULATE.
[2018-09-13 04:23] VITALS: BP 147/82
[2018-09-13 08:31] LABS: INR 2.13 (0.85-1.17); PROTIME 23.1 SECONDS (11.6-15.0)
[2018-09-13 08:48] LABS: BASOPHILS 0.3 % (0-2); HEMATOCRIT 43.8 % (42.0-54.0); HEMOGLOBIN 14.4 g/dL (13.5-17.5); IMMATURE GRANULOCYTES 0.6 % (0-5); LYMPHOCYTES 8.9 % (15-50); MCH 29.7 pg (26.0-34.0); MCHC 32.9 g/dL (31.0-37.0); MCV 90.3 fL (80.0-100.0); MEAN PLATELET VOLUME 11.1 fL (7.4-10.4); MONOCYTES 13.7 % (2-11); NEUTROPHILS 75.5 % (40-80); PLATELET COUNT 187 10x3/uL (130-400); RBC 4.85 10x6/uL (4.20-6.10); WBC 10.6 10x3/uL (4.8-10.8)
[2018-09-13 08:49] LABS: ALBUMIN 2.4 g/dL (3.4-5.0); ANION GAP 14.4 mmol/L (8-16); BILIRUBIN - TOTAL 2.81 mg/dL (0.2-1.3); CALCIUM 7.5 mg/dL (8.5-10.1); CARBON DIOXIDE 27.4 mmol/L (21.0-32.0); CREATININE - SERUM 1.2 mg/dL (0.6-1.3); MAGNESIUM - SERUM 1.8 mg/dL (1.8-2.4); POTASSIUM - SERUM 3.8 mmol/L (3.5-5.1); PROTEIN - SERUM 5.7 g/dL (6.4-8.2)
--- NOTE | 2018-09-13 11:11 | NUR ---
PATIENT IN BED WITH AT BEDSIDE. SKIN W/D TO TOUCH, COLOR PINK, RESP. REGULAR AND EVEN AT 20. PATIENT C/O ABDOMINAL PAIN AND MEDICATED WITH DILAUDID 1MG IVP AND PATIENT TOLERATED WELL. C/L WITHIN REACH AND SR'S UP X'S 2
[2018-09-13 12:19] LABS: BILIRUBIN - DIRECT 0.44 mg/dL (0.00-0.30); BILIRUBIN - INDIRECT 2.07 mg/dL (0.00-1.00); BILIRUBIN - TOTAL 2.51 mg/dL (0.2-1.3)
[2018-09-13 14:07] VITALS: BP 142/76
[2018-09-13 14:08] VITALS: BP 134/72
--- NOTE | 2018-09-13 14:10 | NUR ---
PATIENT UP ON SOB, SKIN W/D TO TOUCH, COLOR PINK, RESP. REGULAR AND EVEN AT 20, O2 ON AT 2 L/M NC, PATIENT WEIGHED 332 LBS. PATIENT GIVEN URINAL AND INSTRUCTED TO USE FOR I & O. C/L WITHIN REACH AND SR'S UP X'S 2.
--- NOTE | 2018-09-13 14:17 | NUR ---
RECEIVED N.O. FROM DR. SUNSHINE TO D/C NS, SPOKE WITH SHANNON GREEN RE: EARLIER DISCUSSION WITH DR. MEDINA.
--- NOTE | 2018-09-13 16:19 | NUR ---
PATIENT IN BED LUIS PICKETT RN ATTEMPTED X'S 2 START IV, UNSUCCESSFUL. MARQUISE MENDOZA STARTED X'S 1 LEFT FOREARM AND DILAUDID 1MG GIVEN. C/L WITHIN REACH AND SR'S UP X'S 2.
--- NOTE | 2018-09-13 19:11 | NUR ---
CALLED [facility] AT [phone] TO TALK TO PATIENT'S DAUGHTER REGARDING SURGERY TIME, UNABLE TO GET DEFINATE TIME FOR SURGERY, L/M AT [facility] DAUGHTER TO CALL BACK.
--- NOTE | 2018-09-13 20:00 | NUR ---
MOUTH BREATHING/SNORING. EYES CLOSED. UNAROUSED BY VOICE, TAPPING ON SHOULDER, OR LIGHT. RAISED VOICE AND RUBBED PT'S SHOULDER, HE DROWSILY AWOKE. REPORTS MAJOR DIZZY SPELL WHEN SITTING UP. INSTRUCTED TO CHANGE POSITIONS SLOWLY. PT STATED HE HAD TO VOID, INSTRUCTED TO USE URINAL. PT VOIDED 200ML CLEAR YELLOW URINE, VERBALIZED EXTREME THIRST, DENIES PAIN AT THIS TIME, BUT HAVING DIFICULTY STAYING SAT UP IN BED. BP 162/97 WHILE SITTING. WILL CONTINUE TO MONITOR.
[2018-09-13 20:43] VITALS: BP 162/97
--- NOTE | 2018-09-14 00:01 | NUR ---
PT REPORTS HE PASSED A SOFT, SEMI-FORMED BM.
[2018-09-14 00:03] VITALS: BP 133/61
[2018-09-14 05:20] VITALS: BP 135/71
--- NOTE | 2018-09-14 07:59 | NUR ---
SUPERINTENDENT FISH HATCHERY AT BEDSIDE TO GET VITAL SIGNS, PT RESTING COMFORTABLY IN BED, DENIES ANY NEEDS AT THIS TIME. CALL LIGHT IN REACH, NAD NOTED.
[2018-09-14 08:06] LABS: HEMATOCRIT 44.3 % (42.0-54.0); HEMOGLOBIN 14.5 g/dL (13.5-17.5); MCH 29.4 pg (26.0-34.0); MCHC 32.7 g/dL (31.0-37.0); MCV 89.7 fL (80.0-100.0); MEAN PLATELET VOLUME 10.7 fL (7.4-10.4); PLATELET COUNT 181 10x3/uL (130-400); RBC 4.94 10x6/uL (4.20-6.10); WBC 11.9 10x3/uL (4.8-10.8)
[2018-09-14 08:24] VITALS: BP 141/77
[2018-09-14 08:24] LABS: INR 2.09 (0.85-1.17); PROTIME 22.8 SECONDS (11.6-15.0)
[2018-09-14 08:25] LABS: ALBUMIN 2.5 g/dL (3.4-5.0); ANION GAP 14.6 mmol/L (8-16); BILIRUBIN - TOTAL 2.34 mg/dL (0.2-1.3); CREATININE - SERUM 1.2 mg/dL (0.6-1.3); POTASSIUM - SERUM 3.6 mmol/L (3.5-5.1); PROTEIN - SERUM 6.1 g/dL (6.4-8.2)
[2018-09-14 09:36] LABS: LYMPHOCYTES 17 % (15-50); MONOCYTES 12 % (2-11); NEUTROPHILS 64 % (40-80); PLATELET ESTIMATE NORMAL; ROULEAUX OCC
--- NOTE | 2018-09-14 11:17 | NUR ---
PT RESTING IN BED. NO SIGNS OF DISTRESS. IV TO LEFT AC PATENT NO REDNESS OR TENDERNESS. ON TELEMETRY A FIB 89. ON 3L NC. HAS PALE/BLUISH HANDS. DENIES ANY NEED AT THIS TIME. CALL LIGHT IN REACH. BED LOW POSITION. FAMILY AT BEDSIDE. GOING TO SURGERY TODAY.
[2018-09-14 14:37] VITALS: BP 118/60
[2018-09-14 16:54] VITALS: BP 121/73
--- NOTE | 2018-09-14 19:30 | NUR ---
PT IS RESTING IN BED WITH EYES OPEN. ALERT AND ORIENTED X 3. DENIES ACUTE PAIN OR DISCOMFORT AT THIS TIME. NO NEEDS VOICED. BANDAIDS TO 4 INCISIONS ON ABD ARE CDI. NO DRAINAGE NOTED. 02 IS ON @ 3LPM PER NC. NO SOB NOTED. RIGHT IJ SALINE LOCK NOTED. TELEMETRY UNIT IS ON AND INTACT. SR'S ARE UP X 2 IN BED. CALL LIGHT AND BEDSIDE TABLE ARE WITHIN EASY REACH.
[2018-09-14 20:00] VITALS: BP 126/79
--- NOTE | 2018-09-14 21:35 | NUR ---
PT IS RESTING IN BED WATCHING TV. NO NEEDS VOICED.
[2018-09-15] VITALS: BP 142/70
--- NOTE | 2018-09-15 00:01 | NUR ---
RESTING IN BED WITH EYES CLOSED.
--- NOTE | 2018-09-15 03:44 | NUR ---
PT RESTING IN BED WITH EYES CLOSED. NO DISTRESS NOTED.
[2018-09-15 04:00] VITALS: BP 147/77
[2018-09-15 07:27] VITALS: BP 130/74
[2018-09-15 07:48] LABS: BASOPHILS 0.3 % (0-2); EOSINOPHILS 0.9 % (0-7); HEMATOCRIT 41.2 % (42.0-54.0); HEMOGLOBIN 13.5 g/dL (13.5-17.5); IMMATURE GRANULOCYTES 1.5 % (0-5); MCH 29.2 pg (26.0-34.0); MCHC 32.8 g/dL (31.0-37.0); MCV 89.2 fL (80.0-100.0); MEAN PLATELET VOLUME 11.4 fL (7.4-10.4); MONOCYTES 16.2 % (2-11); NEUTROPHILS 74.1 % (40-80); PLATELET COUNT 209 10x3/uL (130-400); RBC 4.62 10x6/uL (4.20-6.10); WBC 11.5 10x3/uL (4.8-10.8)
[2018-09-15 08:01] LABS: INR 2.11 (0.85-1.17)
[2018-09-15 08:27] LABS: ALBUMIN 2.3 g/dL (3.4-5.0); ANION GAP 12.8 mmol/L (8-16); BILIRUBIN - TOTAL 1.87 mg/dL (0.2-1.3); CALCIUM 7.5 mg/dL (8.5-10.1); CARBON DIOXIDE 30.7 mmol/L (21.0-32.0); CREATININE - SERUM 1.2 mg/dL (0.6-1.3); POTASSIUM - SERUM 3.5 mmol/L (3.5-5.1); PROTEIN - SERUM 5.2 g/dL (6.4-8.2)
--- NOTE | 2018-09-15 10:22 | NUR ---
PT RESTING IN BED. NO SIGNS OF DISTRESS. IV TO RIGHT JUGULAR PATENT NO REDNESS OR TENDERNESS. HAS 4 LAP SITES TO ABDOMEN DRESSING CLEAN AND INTACT. HAS GENERALIZED EDEMA. ON 3L NC. COMPLAINS OF PAIN. MEDS GIVEN WILL MONITOR. DENIES ANY NEED AT THIS TIME. CALL LIGHT IN REACH. BED LOW POSITION. FAMILY WAS AT BEDSIDE.
[2018-09-15 11:43] VITALS: BP 118/73
--- NOTE | 2018-09-15 12:38 | NUR ---
Diet has advanced to full liquid and pt reports tolerating liquids well. Pt eating 100% of diet Encouraged Ensure and ordered Ensure to help increase protein intake while on liquid diet. REC: Advance diet once medically feasible RD following
[2018-09-15 15:13] VITALS: BP 130/75
--- NOTE | 2018-09-15 16:52 | MORECARE ---
CASE MANAGEMENT DISCHARGE SUMMARY PATIENT: JOHNY LECHUGA UNIT: [id number] ADM DATE: 09/09/18 AGE: 77 : 42 SEX: M ROOM/BED: D.1209 AUTHOR: BERTIN,DOC PHYSICIAN: REFERRING PHYSICIAN: NICK SUNSHINE MD DATE OF SERVICE: 09/15/18 Discharge Plan Patient Name: JOHNY LECHUGA Facility: [facility]:[place] : 1940 Planned Disposition: Anticipated Discharge Date: 09/15/18 Discharge Date: Expected LOS: 6 Initial Reviewer: [id number] Initial Review Date: 09/09/2018 Generated: 09/15/18 5:51 pm Comments DCP- Discharge Planning Updated by [email or web address]: Jenni Alvarenga on 09/15/18 3:[address] Patient Name: JOHNY LECHUGA Admission Status: ER Accout number: [id number] Admission Date: 09-09-2018 : 1940 Admission Diagnosis:ACUTE PANCREATITIS WITHOUT NECROSIS OR INFECTION, UNSP Attending: NICK SUNSHINE Current LOS: 6 Anticipated DC Date: 09-15-2018 Planned Disposition: Primary Insurance: MEDICARE A & B Discharge Planning Comments: CM MET WITH PATIENT ABOUT DC PLANNING/NEEDS. DENIES NEEDS. STATES IS INDEPENDANT AND LIVES WITH . STATES WILL PICK HIM UP AT TIME OF DC. IM SIGNED. CM WILL FOLLOW AND ASSIST NEEDED WITH DC PLANNING/NEEDS. Preparation Room Manager: Jenni Alvarenga DCP- Discharge Planning Updated by [id number]: Cynthia Carballo on 09/14/18 12:[address] LATE ENTRY 1000 CM WENT TO PATIENT'S ROOM TO DISCUSS DISCHARGE PLANNING NEEDS. HE HAD BEEN TAKEN TO THE OR FOR A LAP LOUANN. NO FAMILY IN THE ROOM. NURSE STATES THEY HAD BEEN AT THE BEDSIDE EARLIER. 1200- PATIENT NOR FAMILY HAS RETURNED TO THE ROOM 1315- PATIENT NOR FAMILY HAS RETURNED TO THE ROOM. DCPIA - Discharge Planning Initial Assessment Updated by [id number]: Jenni Alvarenga on 09/15/18 4:43 pm * Is the patient Alert and Oriented? No * PCP UNSURE * Pharmacy [facility] [address] * Preadmission Environment Home with Family * ADLs Independent * Equipment Cane CPAP Walker * List name and contact numbers for known caregivers / representatives who currently or will assist patient after discharge: ROSA ISELA, ROSIO, * Please name any agencies selected above. STATES NONE * Additional services required to return to the preadmission environment? No * Can the patient safely return to the preadmission environment? Yes * Has this patient been hospitalized within the prior 30 days at any hospital? No Coverage Notice Reviewer: [id number] - Jenni Alvarenga Notice Issued Date-Time: 09/15/2018 16:40 Notice Type: IM Discharge Notice Notice Delivered To: Patient Relationship to Patient: Self Landscape And Yardwork Laborer Name: Delivery Method: HAND - Hand Delivered Laila Days: Prior Verbal Notification: Recipient Understood Notice: Yes Recipient Signature: Yes Med Rec Note Co-signed by Attending: Coverage Notice Comment: Patient Name: JOHNY LECHUGA Page 20611 at 1652 All edits/amendments must be made on the electronic document DICTATION DATE: 09/15/181650 FLORAL ARTIST: IKE 09/15/181650 RPT#: [id number] DC DATE: STATUS: ADM IN [facility] [address] [place] [address] END OF REPORT
--- NOTE | 2018-09-15 18:08 | NUR ---
TALKED TO EVER LEMON INFOMRED HER THAT FAMILY WANTS TO TALK TO DOCTOR REGARDING PT BEING DISCHARGE. EVER LEMON STATED THAT SHE WOULD HAVE DR. YI CALL THE UNIT AND TALK TO THE FAMILY.
[2018-09-15 20:00] VITALS: BP 142/61
--- NOTE | 2018-09-15 20:05 | NUR ---
PT C/O PAIN AT ABD AREA, A LEVEL OF 5, NORCO 5 GIVEN.
--- NOTE | 2018-09-16 00:09 | NUR ---
CHECKED PT BLOOD SUGAR, 296, HUMULIN R 6 UNITS GIVEN.
[2018-09-16 00:20] VITALS: BP 112/65
--- NOTE | 2018-09-16 01:34 | NUR ---
PATIENT RESTING IN BED WITH EYES CLOSED AND NO S/S OF DISTRESS. BREATHING EVEN AND UNLABORED. BED IN LOWEST POSITION AND CALL LIGHT WITHIN REACH. WILL CONTINUE TO MONITOR.
[2018-09-16 04:00] VITALS: BP 125/75
[2018-09-16 05:15] LABS: IGG SUBCLASS 1 300 mg/dL (248-810); IGG SUBCLASS 2 195 mg/dL (130-555); IGG SUBCLASS 3 34 mg/dL (15-102); IGG SUBCLASS 4 35 mg/dL (2-96)
--- NOTE | 2018-09-16 07:17 | NUR ---
PT RESTING QUIETLY. CL IN REACH. PT DENIES NEEDS OR PAIN. BED IN LOW POSITION. SIDE RAILS X2. WCTM
[2018-09-16 08:24] VITALS: BP 118/71
--- NOTE | 2018-09-16 08:49 | MORECARE ---
CASE MANAGEMENT DISCHARGE SUMMARY PATIENT: JOHNY LECHUGA UNIT: [id number] ADM DATE: 09/09/18 AGE: 77 : 42 SEX: M ROOM/BED: D.1209 AUTHOR: BERTIN,DOC PHYSICIAN: REFERRING PHYSICIAN: NICK SUNSHINE MD DATE OF SERVICE: 09/16/18 Discharge Plan Patient Name: JOHNY LECHUGA Facility: [facility]:[place] : 1940 Planned Disposition: Anticipated Discharge Date: 09/15/18 Discharge Date: Expected LOS: 6 Initial Reviewer: [id number] Initial Review Date: 09/09/2018 Generated: 09/16/18 9:49 am Comments DCP- Discharge Planning Updated by [email or web address]: eJnni Alvarenga on 09/15/18 3:[address] Patient Name: JOHNY LECHUGA Admission Status: ER Accout number: [id number] Admission Date: 09-09-2018 : 1940 Admission Diagnosis:ACUTE PANCREATITIS WITHOUT NECROSIS OR INFECTION, UNSP Attending: NICK SUNSHINE Current LOS: 6 Anticipated DC Date: 09-15-2018 Planned Disposition: Primary Insurance: MEDICARE A & B Discharge Planning Comments: CM MET WITH PATIENT ABOUT DC PLANNING/NEEDS. DENIES NEEDS. STATES IS INDEPENDANT AND LIVES WITH . STATES WILL PICK HIM UP AT TIME OF DC. IM SIGNED. CM WILL FOLLOW AND ASSIST NEEDED WITH DC PLANNING/NEEDS. Administrative Assistant Coordinator: Jenni Alvarenga DCP- Discharge Planning Updated by [email or web address]: Cynthia Carballo on 09/14/18 12:[address] LATE ENTRY 1000 CM WENT TO PATIENT'S ROOM TO DISCUSS DISCHARGE PLANNING NEEDS. HE HAD BEEN TAKEN TO THE OR FOR A LAP LOUANN. NO FAMILY IN THE ROOM. NURSE STATES THEY HAD BEEN AT THE BEDSIDE EARLIER. 1200- PATIENT NOR FAMILY HAS RETURNED TO THE ROOM 1315- PATIENT NOR FAMILY HAS RETURNED TO THE ROOM. DCPIA - Discharge Planning Initial Assessment Updated by [id number]: Jenni Alvarenga on 09/15/18 4:43 pm * Is the patient Alert and Oriented? No * PCP UNSURE * Pharmacy [facility] [address] * Preadmission Environment Home with Family * ADLs Independent * Equipment Cane CPAP Walker * List name and contact numbers for known caregivers / representatives who currently or will assist patient after discharge: ROSA ISELA, ROSIO, * Please name any agencies selected above. STATES NONE * Additional services required to return to the preadmission environment? No * Can the patient safely return to the preadmission environment? Yes * Has this patient been hospitalized within the prior 30 days at any hospital? No Coverage Notice Reviewer: [id number] - Jenni Alvarenga Notice Issued Date-Time: 09/15/2018 16:40 Notice Type: IM Discharge Notice Notice Delivered To: Patient Relationship to Patient: Self Scientific Software Developer Name: Delivery Method: HAND - Hand Delivered Laila Days: Prior Verbal Notification: Recipient Understood Notice: Yes Recipient Signature: Yes Med Rec Note Co-signed by Attending: Coverage Notice Comment: Last DP export: 09/15/18 3:52 pm Patient Name: JOHNY LECHUGA Page [phone] at 0849 All edits/amendments must be made on the electronic document DICTATION DATE: 09/16/18847 PACK OPERATOR: IKE 09/16/18847 RPT#: [id number] DC DATE: STATUS: ADM IN [facility] [address] [place] [address] END OF REPORT
--- NOTE | 2018-09-16 10:28 | NUR ---
Rehab Prescreening Consult recieved and the chart has been reviewed. This patient had a discharge order for yesterday, but notes are unclear as to the reason he did not discharge. Tried to call the CM Jenni to discuss patient without success, will continue to attempt. The patient has not had a PT eval so unsure of his therapy needs at this time. To meet Medicare criteria a patient must have the need for at least 2 therapies such as PT/OT or ST as well as the medical necessity to be seen by a physician 3 times a week. Zita Bell RN Clinical Liaison, Rehab
--- NOTE | 2018-09-16 11:25 | MORECARE ---
CASE MANAGEMENT DISCHARGE SUMMARY PATIENT: JOHNY LECHUGA UNIT: [id number] ADM DATE: 09/09/18 AGE: 77 : 42 SEX: M ROOM/BED: D.1209 AUTHOR: BERTIN,DOC PHYSICIAN: REFERRING PHYSICIAN: NICK SUNSHINE MD DATE OF SERVICE: 09/16/18 Discharge Plan Patient Name: JOHNY LECHUGA Facility: [facility]:[place] : 1940 Planned Disposition: Anticipated Discharge Date: 09/15/18 Discharge Date: Expected LOS: 6 Initial Reviewer: [id number] Initial Review Date: 09/09/2018 Generated: 09/16/18 12:25 pm Comments DCP- Discharge Planning Updated by [id number]: Jenni Alvarenga on 09/15/18 3:[address] Patient Name: JOHNY LECHUGA Admission Status: ER Accout number: [id number] Admission Date: 09-09-2018 : 1940 Admission Diagnosis:ACUTE PANCREATITIS WITHOUT NECROSIS OR INFECTION, UNSP Attending: NICK SUNSHINE Current LOS: 6 Anticipated DC Date: 09-15-2018 Planned Disposition: Primary Insurance: MEDICARE A & B Discharge Planning Comments: CM MET WITH PATIENT ABOUT DC PLANNING/NEEDS. DENIES NEEDS. STATES IS INDEPENDANT AND LIVES WITH . STATES WILL PICK HIM UP AT TIME OF DC. IM SIGNED. CM WILL FOLLOW AND ASSIST NEEDED WITH DC PLANNING/NEEDS. Pet Groomer: Jenni Alvarenga DCP- Discharge Planning Updated by [email or web address]: Cnythia Carballo on 09/14/18 12:[address] LATE ENTRY 1000 CM WENT TO PATIENT'S ROOM TO DISCUSS DISCHARGE PLANNING NEEDS. HE HAD BEEN TAKEN TO THE OR FOR A LAP LOUANN. NO FAMILY IN THE ROOM. NURSE STATES THEY HAD BEEN AT THE BEDSIDE EARLIER. 1200- PATIENT NOR FAMILY HAS RETURNED TO THE ROOM 1315- PATIENT NOR FAMILY HAS RETURNED TO THE ROOM. DCPIA - Discharge Planning Initial Assessment Updated by [id number]: Jenni Alvarenga on 09/15/18 4:43 pm * Is the patient Alert and Oriented? No * PCP UNSURE * Pharmacy [facility] [address] * Preadmission Environment Home with Family * ADLs Independent * Equipment Cane CPAP Walker * List name and contact numbers for known caregivers / representatives who currently or will assist patient after discharge: ROSA ISELA, ROSIO, * Please name any agencies selected above. STATES NONE * Additional services required to return to the preadmission environment? No * Can the patient safely return to the preadmission environment? Yes * Has this patient been hospitalized within the prior 30 days at any hospital? No Coverage Notice Reviewer: [id number] - Jenni Alvarenga Notice Issued Date-Time: 09/15/2018 16:40 Notice Type: IM Discharge Notice Notice Delivered To: Patient Relationship to Patient: Self Train Controller Name: Delivery Method: HAND - Hand Delivered Laila Days: Prior Verbal Notification: Recipient Understood Notice: Yes Recipient Signature: Yes Med Rec Note Co-signed by Attending: Coverage Notice Comment: Last DP export: 09/16/18 7:49 am Patient Name: JOHNY LECHUGA Page 79860 at 1125 All edits/amendments must be made on the electronic document DICTATION DATE: 09/16/18 112 INSURANCE BILLING CLERK: IKE 09/16/18 1124 RPT#: [id number] DC DATE: STATUS: ADM IN [facility] [address] [place] [address] END OF REPORT
--- NOTE | 2018-09-16 11:54 | NUR ---
PT LYING IN BED WATCHING TV. FAMILY IN ROOM. CL IN REACH. PT DENIES NEEDS OR PAIN. WCTM
--- NOTE | 2018-09-16 12:32 | MORECARE ---
CASE MANAGEMENT DISCHARGE SUMMARY PATIENT: JOHNY LECHUGA UNIT: [id number] ADM DATE: 09/09/18 AGE: 77 : 42 SEX: M ROOM/BED: D.1209 AUTHOR: BERTINDOC PHYSICIAN: REFERRING PHYSICIAN: NICK SUNSHINE MD DATE OF SERVICE: 09/16/18 Discharge Plan Patient Name: JOHNY LECHUGA Facility: [facility]:[place] : 1940 Planned Disposition: Anticipated Discharge Date: 09/15/18 Discharge Date: Expected LOS: 6 Initial Reviewer: [id number] Initial Review Date: 09/09/2018 Generated: 09/16/18 1:32 pm Comments DCP- Discharge Planning Updated by [email or web address]: Jenni Alvarenga on 09/16/18 11:[address] Patient Name: JOHNY LECHUGA Admission Status: ER Accout number: [id number] Admission Date: 09-09-2018 : 1940 Admission Diagnosis:ACUTE PANCREATITIS WITHOUT NECROSIS OR INFECTION, UNSP Attending: NICK SUNSHINE Current LOS: 7 Anticipated DC Date: 09-15-2018 Planned Disposition: Primary Insurance: MEDICARE A & B Discharge Planning Comments: CM MET WITH PATIENT AND FAMILY, HE STATES WANTS [facility]. CM CALLED CHRISTOS AT [facility] AND FAXED HER DOCUMENTS FOR REFERRAL. CHRISTOS [facility] SHOULD BE ABLE TO SEE HIM BY TOMORROW. AWAITING HER CALL FOR FINAL VERIFICATION. CM WILL FOLLOW AND ASSSIST NEEDE DWI DC PLANNING/NEEDS. [facility] PHONE NUMBER IS [phone]. Tobacco Classer: Jenni Alvarenga DCP- Discharge Planning Updated by [email or web address]: Jenni Alvarenga on 09/15/18 3:[address] Patient Name: JOHNY LECHUGA Admission Status: ER Accout number: [id number] Admission Date: 09-09-2018 : 1940 Admission Diagnosis:ACUTE PANCREATITIS WITHOUT NECROSIS OR INFECTION, UNSP Attending: NICK SUNSHINE Current LOS: 6 Anticipated DC Date: 09-15-2018 Planned Disposition: Primary Insurance: MEDICARE A & B Discharge Planning Comments: CM MET WITH PATIENT ABOUT DC PLANNING/NEEDS. DENIES NEEDS. STATES IS INDEPENDANT AND LIVES WITH . [facility] WILL PICK HIM UP AT TIME OF DC. IM SIGNED. CM WILL FOLLOW AND ASSIST NEEDED WITH DC PLANNING/NEEDS. Tobacco Classer: Jenni Colette DCP- Discharge Planning Updated by [id number]: Cynthia Perezs on 09/14/18 12:[address] LATE ENTRY 1000 CM WENT TO PATIENT'S ROOM TO DISCUSS DISCHARGE PLANNING NEEDS. HE HAD BEEN TAKEN TO THE OR FOR A LAP LOUANN. NO FAMILY IN THE ROOM. NURSE STATES THEY HAD BEEN AT THE BEDSIDE EARLIER. 1200- PATIENT NOR FAMILY HAS RETURNED TO THE ROOM 1315- PATIENT NOR FAMILY HAS RETURNED TO THE ROOM. DCPIA - Discharge Planning Initial Assessment Updated by [email or web address]: Jenni Colette on 09/15/18 4:43 pm * Is the patient Alert and Oriented? No * PCP UNSURE * Pharmacy [facility] [address] * Preadmission Environment Home with Family * ADLs Independent * Equipment Cane CPAP Walker * List name and contact numbers for known caregivers / representatives who currently or will assist patient after discharge: ROSIO NATARAJAN, * Please name any agencies selected above. STATES NONE * Additional services required to return to the preadmission environment? No * Can the patient safely return to the preadmission environment? Yes * Has this patient been hospitalized within the prior 30 days at any hospital? No External Providers External Provider: [facility] Next Contact Date: Service Request Date: Service Type: Resolution: Reviewer: Comments: Coverage Notice Reviewer: [email or web address] Rama Alvarenga Notice Issued Date-Time: 09/15/2018 16:40 Notice Type: IM Discharge Notice Notice Delivered To: Patient Relationship to Patient: Self Tool And Die Technician Name: Delivery Method: HAND - Hand Delivered Laila Days: Prior Verbal Notification: Recipient Understood Notice: Yes Recipient Signature: Yes Med Rec Note Co-signed by Attending: Coverage Notice Comment: Reviewer: [id number] Rama Alvarenga Notice Issued Date-Time: 09/16/2018 12:23 Notice Type: Patient Choice Letter Notice Delivered To: Family Member Relationship to Patient: Spouse Tool And Die Technician Name: Delivery Method: HAND - Hand Delivered Laila Days: Prior Verbal Notification: Recipient Understood Notice: Yes Recipient Signature: Yes Med Rec Note Co-signed by Attending: Coverage Notice Comment: SAMMY SANTIZO export: 09/16/18 10:25 am Patient Name: JOHNY LECHUGA Page 13936 at 1232 All edits/amendments must be made on the electronic document DICTATION DATE: 09/16/18 1231 SOCIOLOGY INSTRUCTOR: IKE 09/16/18 1231 RPT#: [id number] DC DATE: STATUS: ADM IN [facility] [address] [place] [address] END OF REPORT
--- NOTE | 2018-09-16 12:45 | NUR ---
PT RECIEVED FLU VACINE. PT DENIES NEEDS OR PAIN. CL IN REACH.
--- NOTE | 2018-09-16 13:51 | NUR ---
RIGHT IJ CVL DCD. NO BLEEDING NOTED.
--- NOTE | 2018-09-16 14:20 | NUR ---
PT HAD IJ REMOVED BY RN. CL IN REACH. NO BLEEDING NOTED. IN ROOM. WILL DC VERY SOON.
--- NOTE | 2018-09-16 14:47 | NUR ---
PT STATES THAT THEY HAVE TO WAIT ON DAUGHTER TO PICK THEM UP AND SHE WONT BE HERE UNTIL 1630. PAPERWORK SIGNED AND PT READY TO DC. CL IN REACH.
--- NOTE | 2018-09-16 15:29 | NUR ---
PT HAS BEEN DISCHARGE AND IV TAKEN OUT. PT WAITING ON RIDE, DENIES ANY NEEDS AT THIS TIME. RESP EVEN AND NONLABORED, CALL LIGHT IN REACH, FAMILY AT BEDSIDE, NAD NOTED.
--- NOTE | 2018-09-16 15:47 | NUR ---
PT LEFT FLOOR VIA WHEELCHAIR WITH DAUGHTER AND . PAPERWORK WITH PT AND DENIES NEEDING ANY MEDS CALLED INTO PHARMACY.
--- NOTE | 2018-09-18 15:52 | MORECARE ---
CASE MANAGEMENT DISCHARGE SUMMARY PATIENT: JOHNY LECHUGA UNIT: [id number] ADM DATE: 09/09/18 AGE: 77 : 42 SEX: M ROOM/BED: D.1209 AUTHOR: BERTINDOC PHYSICIAN: REFERRING PHYSICIAN: NICK SUNSHINE MD DATE OF SERVICE: 09/18/18 Discharge Plan Patient Name: JOHNY LECHUGA Facility: [facility]:[place] : 1940 Planned Disposition: Anticipated Discharge Date: 09/15/18 Discharge Date: 09/16/2018 Expected LOS: 6 Initial Reviewer: [id number] Initial Review Date: 09/09/2018 Generated: 09/18/18 4:52 pm Comments DCP- Discharge Planning Updated by [email or web address]: Jenni Alvarenga on 09/16/18 11:[address] Patient Name: JOHNY LECHUGA Admission Status: ER Accout number: [id number] Admission Date: 09-09-2018 : 1940 Admission Diagnosis:ACUTE PANCREATITIS WITHOUT NECROSIS OR INFECTION, UNSP Attending: NICK SUNSHINE Current LOS: 7 Anticipated DC Date: 09-15-2018 Planned Disposition: Primary Insurance: MEDICARE A & B Discharge Planning Comments: CM MET WITH PATIENT AND FAMILY, HE STATES WANTS [facility]. CM CALLED CHRISTOS AT [facility] AND FAXED HER DOCUMENTS FOR REFERRAL. [facility] SHOULD BE ABLE TO SEE HIM BY TOMORROW. AWAITING HER CALL FOR FINAL VERIFICATION. CM WILL FOLLOW AND ASSSIST NEEDE DWI DC PLANNING/NEEDS. [facility] PHONE NUMBER IS [phone]. Oil Tanker Captain: Jenni Alvarenga DCP- Discharge Planning Updated by [email or web address]: Jenni Alvarenga on 09/15/18 3:[address] Patient Name: JOHNY LECHUGA Admission Status: ER Accout number: [id number] Admission Date: 09-09-2018 : 1940 Admission Diagnosis:ACUTE PANCREATITIS WITHOUT NECROSIS OR INFECTION, UNSP Attending: NICK SUNSHINE Current LOS: 6 Anticipated DC Date: 09-15-2018 Planned Disposition: Primary Insurance: MEDICARE A & B Discharge Planning Comments: CM MET WITH PATIENT ABOUT DC PLANNING/NEEDS. DENIES NEEDS. STATES IS INDEPENDANT AND LIVES WITH . STATES WILL PICK HIM UP AT TIME OF DC. IM SIGNED. CM WILL FOLLOW AND ASSIST NEEDED WITH DC PLANNING/NEEDS. Oil Tanker Captain: Jenni Alvarenga DCP- Discharge Planning Updated by [id number]: Cynthiahumera Carballo on 09/14/18 12:[address] LATE ENTRY 1000 CM WENT TO PATIENT'S ROOM TO DISCUSS DISCHARGE PLANNING NEEDS. HE HAD BEEN TAKEN TO THE OR FOR A LAP [place]ANN. NO FAMILY IN THE ROOM. NURSE STATES THEY HAD BEEN AT THE BEDSIDE EARLIER. 1200- PATIENT NOR FAMILY HAS RETURNED TO THE ROOM 1315- PATIENT NOR FAMILY HAS RETURNED TO THE ROOM. DCPIA - Discharge Planning Initial Assessment Updated by [id number]: Jenni Alvarenga on 09/15/18 4:43 pm * Is the patient Alert and Oriented? No * PCP UNSURE * Pharmacy [facility] [address] * Preadmission Environment Home with Family * ADLs Independent * Equipment Cane CPAP Walker * List name and contact numbers for known caregivers / representatives who currently or will assist patient after discharge: ROSIO NATARAJAN, * Please name any agencies selected above. STATES NONE * Additional services required to return to the preadmission environment? No * Can the patient safely return to the preadmission environment? Yes * Has this patient been hospitalized within the prior 30 days at any hospital? No Coverage Notice Reviewer: [id number] Rama Alvarenga Notice Issued Date-Time: 09/15/2018 16:40 Notice Type: IM Discharge Notice Notice Delivered To: Patient Relationship to Patient: Self Intranet Developer Name: Delivery Method: HAND - Hand Delivered Laila Days: Prior Verbal Notification: Recipient Understood Notice: Yes Recipient Signature: Yes Med Rec Note Co-signed by Attending: Coverage Notice Comment: Reviewer: [id number] Rama Alvarenga Notice Issued Date-Time: 09/16/2018 12:23 Notice Type: Patient Choice Letter Notice Delivered To: Family Member Relationship to Patient: Spouse Intranet Developer Name: Delivery Method: HAND - Hand Delivered Laila Days: Prior Verbal Notification: Recipient Understood Notice: Yes Recipient Signature: Yes Med Rec Note Co-signed by Attending: Coverage Notice Comment: SAMMY SANTIZO export: 09/16/18 11:32 am Patient Name: JOHNY LECHUGA Page 54806 at 1552 All edits/amendments must be made on the electronic document DICTATION DATE: 09/18/181551 VACUUM APPLICATOR OPERATOR: IKE 09/18/181551 RPT#: [id number] DC DATE:09/16/18 STATUS: DIS IN [facility] [address] [place] [address] END OF REPORT
== END 2018-09-16 15:49 | disposition home health service (06) | DRG 417 ==
LOC: D.ER 19:18 → D.M3 22:06 → D.EDHOLD 22:06 → D.M3 22:23
PROVIDERS: Family Medicine; Internal Medicine Gastroenterology; Surgery; ADMIT Internal Medicine Nephrology
PROC: 0FT44ZZ Resection of Gallbladder, Percutaneous Endoscopic Approach (ICD-10-PCS; principal; 2018-09-14 14:15)
DX: K82.8 Other specified diseases of gallbladder (principal); K85.90 Acute pancreatitis without necrosis or infection, unspecified; I13.0 Hypertensive heart and chronic kidney disease with heart failure and stage 1 through stage 4 chronic kidney disease, or unspecified chronic kidney disease; N17.9 Acute kidney failure, unspecified; R18.8 Other ascites; E11.22 Type 2 diabetes mellitus with diabetic chronic kidney disease; N18.3 Chronic kidney disease, stage 3 (moderate); I50.9 Heart failure, unspecified; E83.42 Hypomagnesemia; I48.91 Unspecified atrial fibrillation; Z79.01 Long term (current) use of anticoagulants; E78.5 Hyperlipidemia, unspecified; G47.33 Obstructive sleep apnea (adult) (pediatric); I25.10 Atherosclerotic heart disease of native coronary artery without angina pectoris; K74.60 Unspecified cirrhosis of liver

== ENCOUNTER 2018-09-19 15:45 | Emergency (ER) | payer MEDICARE, BC ==
[~2018-09-19] VITALS: Ht 195.6 cm; Wt 138.6 kg
[~2018-09-19 15:45] MED LIST changes: +COLACE100 MG PO; +COREG12.5 MG PO; +ENTRESTO 24 MG1 EACH PO; +JANTOVEN10 MG PO
[2018-09-19 15:51] VITALS: Ht 195.6 cm; Wt 138.6 kg
[2018-09-19] MEDS ORDERED: JANTOVEN10 MG PO (15:54)
[2018-09-19 16:58] LABS: BASOPHILS 0.3 % (0-2); HEMATOCRIT 39.3 % (42.0-54.0); HEMOGLOBIN 13.2 g/dL (13.5-17.5); IMMATURE GRANULOCYTES 0.6 % (0-5); LYMPHOCYTES 10.3 % (15-50); MCH 29.4 pg (26.0-34.0); MCHC 33.6 g/dL (31.0-37.0); MCV 87.5 fL (80.0-100.0); MEAN PLATELET VOLUME 10.6 fL (7.4-10.4); MONOCYTES 8.2 % (2-11); NEUTROPHILS 79.6 % (40-80); RBC 4.49 10x6/uL (4.20-6.10); RDW 13.6 % (11.5-14.5); WBC 14.3 10x3/uL (4.8-10.8)
[2018-09-19 17:03] LABS: PLATELET COUNT 274 10x3/uL (130-400)
[2018-09-19 17:21] LABS: ALBUMIN 2.1 g/dL (3.4-5.0); ALKALINE PHOSPHATASE 86 U/L (46-116); ALT (SGPT) 34 U/L (10-68); AMYLASE - SERUM 158 U/L (25-115); BILIRUBIN - TOTAL 0.83 mg/dL (0.2-1.3); CALCIUM 8.2 mg/dL (8.5-10.1); CARBON DIOXIDE 27.8 mmol/L (21.0-32.0); CHLORIDE - SERUM 99 mmol/L (98-107); CREATININE - SERUM 1.1 mg/dL (0.6-1.3); LIPASE 992 U/L (73-393); PROTEIN - SERUM 5.9 g/dL (6.4-8.2); SODIUM 138 mmol/L (136-145); TROPONIN-I < 0.017 ng/mL (0.000-0.060); UREA NITROGEN 12 mg/dL (7-18); eGFR NON AFRICAN AMERICAN 69 mL/min (90-120)
[2018-09-19 17:32] LABS: CALC OSMOLALITY 280 mosm/kg (275-300); GLUCOSE 185 mg/dL (74-106)
[2018-09-19 17:36] LABS: POTASSIUM - SERUM 2.7 mmol/L (3.5-5.1)
[2018-09-19 17:40] LABS: PROTIME 18.6 SECONDS (11.6-15.0)
[2018-09-19 17:41] LABS: APTT 29.2 SECONDS (22.8-39.4); INR 1.56 (0.85-1.17)
[2018-09-19 18:38] LABS: APPEARANCE CLEAR (CLEAR); COLOR YELLOW (YELLOW)
[2018-09-19 18:39] LABS: BILIRUBIN NEGATIVE (NEGATIVE); GLUCOSE NEGATIVE (NEGATIVE); KETONE NEGATIVE (NEGATIVE); NITRITE NEGATIVE (NEGATIVE); PROTEIN NEGATIVE (NEGATIVE); UROBILINOGEN NORMAL (NORMAL)
[2018-09-19] MEDS ORDERED: K-DUR20 MEQ PO (18:45)
[2018-09-19 19:02] VITALS: BP 136/78
== END 2018-09-19 19:03 | disposition home or self-care (01) ==
LOC: D.ER 15:45
PROVIDERS: Emergency Medicine
DX: L76.82 Other postprocedural complications of skin and subcutaneous tissue (principal); S30.1XXA Contusion of abdominal wall, initial encounter; X58.XXXA Exposure to other specified factors, initial encounter; Y93.89 Activity, other specified; Y92.89 Other specified places as the place of occurrence of the external cause; E87.6 Hypokalemia; Z79.01 Long term (current) use of anticoagulants

== ENCOUNTER → 2018-11-09 06:47 | Outpatient (CLI) | payer MEDICARE, BC ==
[2018-09-19 15:51] VITALS: BMI 36.2
[~2018-11-09 06:47] MED LIST changes: +K-DUR20 MEQ PO
== END | disposition home or self-care (01) ==
LOC: D.US 06:47
PROVIDERS: ATTEND Family Medicine
DX: R10.9 Unspecified abdominal pain (principal)

== ENCOUNTER → 2018-11-25 12:28 | Outpatient (CLI) | payer MEDICARE, BC ==
[2018-09-19 15:51] VITALS: BMI 36.2
--- NOTE | ~2018-11-25 | EC ---
PATIENT:JOHNY LECHUGA DATE OF SERVICE: 11/25/18 SEX: M MEDICAL RECORD: [id number] DATE OF : 44 LOCATION:[facility] AGE OF PATIENT: 78 ADMISSION DATE: 11/25/18 REFERRING PHYSICIAN: INTERPRETING PHYSICIAN: LIZZIE PICKARD MD ECHOCARDIOGRAM REPORT ECHO CHARGES 4 ECHO COMPLETE Date: 11/25/18 CLINICAL DIAGNOSIS: CARDIOMYOPATHY ECHOCARDIOGRAPHIC MEASUREMENTS (adult normal given) AC root (d.<3.7cm) 4.4 cm LV Septum d (<1.2 cm> 1.4 cm Valve Excursion 1.9 cm LV Septum (systole) 1.8 cm Left Atria (s.<4.0cm> 4.4 cm LVPW d(<1.2cm) 1.7 cm RV (d.<2.3cm) 4.4 cm LVPW (sytole) 2.0 cm LV diastole(<5.6CM) 5.2 cm MV E-F(>70mm/sec) cm LV systole 3.8 cm LVOT Diameter 2.1 cm MV exc.(>10mm) 1.9 cm Est.ejection fraction (50-75%) % DOPPLER: LVIT cm/sec A 76.0 cm/sec E 84.0 cm/sec LA cm/sec RVSP 17 mmHg LVOT 130 cm/sec AOP1/2T m/s Asc. Ao 153 cm/sec RVOT 75 cm/sec RA cm/sec PA 105 cm/sec AV Gradient Peak 9.40 mmHg AV Mean 5.07 mmHg AV Area 3.0 cm MV Gradient Peak 6.20 mmHg MV Mean 2.05 mmHg MV Area cm COMMENTS: Digging Machine Operator: Rizwana MONTES DE OCA Aerial Installer: 1 Dr. Pickard TAPE# PACS Pericardial Effusion N DATE OF SERVICE: 11/25/2018 PROCEDURE: Echocardiogram. FINDINGS: 1. Left ventricular chamber size is within normal limits. Left ventricular systolic function is normal. Overall ejection fraction estimated at 55%. 2. Left atrium is enlarged at 4.4 cm. Right atrium and right ventricular chamber sizes are as well mildly dilated. 3. Valvular structures have normal structure and motion. ECHOCARDIOGRAM REPORT [id number] JOHNY LECHUGA 4. Doppler interrogation reveals only trace to mild mitral regurgitation, no other valvular insufficiency or stenosis. Pulmonary systolic pressure is normal at 17 mmHg. 5. No evidence of pericardial effusion or left ventricular thrombus. TRANSINT:[id number] Voice Confirmation ID: [id number] DOCUMENT ID: [id number] LIZZIE PICKARD MD CC: [id number] DICTATION DATE: 11/30/18 1024 DATA ANALYST REPORT WRITER: 11/30/18 1132 DEP CLI 11/25/18 [facility] [address] [place] [id number]
== END | disposition home or self-care (01) ==
LOC: D.HCCARDIO 12:28
PROVIDERS: ATTEND Internal Medicine Interventional Cardiology
DX: I42.9 Cardiomyopathy, unspecified (principal)

== ENCOUNTER 2021-02-22 22:52 | Inpatient (IN) | payer MEDICARE, BC ==
[~2021-02-22] VITALS: Ht 195.6 cm; Wt 139.3 kg
[2021-02-22] MEDS ORDERED: PLAVIX75 MG PO (23:39)
[2021-02-22] MEDS ORDERED: ISOSORBIDE MONO30 M1 PO (23:39)
[2021-02-22] MEDS ORDERED: LIPITOR10 MG PO (23:39)
[2021-02-23] VITALS (25 sets, daily range): BP systolic 103–171; BP diastolic 45–104; Ht 195.6 cm; Wt 139.3 kg
[2021-02-23 00:09] LABS: BASOPHILS 0.6 % (0-2); EOSINOPHILS 1.6 % (0-7); HEMATOCRIT 40.6 % (42.0-54.0); HEMOGLOBIN 13.3 g/dL (13.5-17.5); LYMPHOCYTES 15.6 % (15-50); MCH 28.7 pg (26.0-34.0); MCHC 32.7 g/dL (31.0-37.0); MCV 87.9 fL (80.0-100.0); MEAN PLATELET VOLUME 8.3 fL (7.4-10.4); MONOCYTES 12.2 % (2-11); RBC 4.62 10x6/uL (4.20-6.10); RDW 14.8 % (11.5-14.5); WBC 9.3 10x3/uL (4.8-10.8)
[2021-02-23 00:14] LABS: PLATELET COUNT 146 10x3/uL (130-400)
[2021-02-23 00:17] LABS: CALC OSMOLALITY 282 mosm/kg (275-300); CALCIUM 8.2 mg/dL (8.5-10.1); CARBON DIOXIDE 29.3 mmol/L (21.0-32.0); CHLORIDE - SERUM 103 mmol/L (98-107); CREATININE - SERUM 1.1 mg/dL (0.6-1.3); GLUCOSE 110 mg/dL (74-106); POTASSIUM - SERUM 3.6 mmol/L (3.5-5.1); SODIUM 141 mmol/L (136-145); UREA NITROGEN 14 mg/dL (7-18); eGFR NON AFRICAN AMERICAN 69 mL/min (90-120)
[2021-02-23 00:18] LABS: APTT 42.6 SECONDS (22.8-39.4)
[2021-02-23 00:19] LABS: INR 2.24 (0.85-1.17)
[2021-02-23 00:33] LABS: ALBUMIN 3.4 g/dL (3.4-5.0); ALKALINE PHOSPHATASE 87 U/L (30-120); ALT (SGPT) 18 U/L (10-68); BILIRUBIN - TOTAL 2.83 mg/dL (0.2-1.3); MAGNESIUM - SERUM 1.8 mg/dL (1.8-2.4); PRO BNP 894 pg/mL (0-450); PROTEIN - SERUM 7.1 g/dL (6.4-8.2); THYROID STIMULATING HORMONE 2.78 uIU/mL (0.36-3.74); TROPONIN-I < 0.017 ng/mL (0.000-0.060)
[2021-02-23 01:34] LABS: CKMB 0.4 U/L (0.0-3.6); CREATINE KINASE 87 UL (21-232)
--- NOTE | 2021-02-23 01:57 | NUR ---
PT GIVEN URINAL. UPON ATTEMPTING TO USE URINAL WHILE IN BED PT HAD SYNCOPAL EPISODE THAT LASTED APPROX 1 MIN, MD CALLED TO BEDSIDE. PT PLACED ON NRB AND MOVED TO TRAUMA ROOM. PT REGAINED CONSCIOUSNESS, AAO, RR EVEN AND UNLABORED AND VSS.
--- NOTE | 2021-02-23 07:45 | NUR ---
DR HENSON ROUNDED AND WANTS TO TAKE PT TO SURGERY TO PLACE [place]. CONSENTS OBTAINED FROM PT.
[2021-02-23 08:28] LABS: BASOPHILS 0.2 % (0-2); EOSINOPHILS 0.7 % (0-7); HEMOGLOBIN 13.1 g/dL (13.5-17.5); MCH 28.7 pg (26.0-34.0); MCHC 32.7 g/dL (31.0-37.0); MCV 87.7 fL (80.0-100.0); MEAN PLATELET VOLUME 8.5 fL (7.4-10.4); MONOCYTES 9.8 % (2-11); NEUTROPHILS 78.3 % (40-80); PLATELET COUNT 131 10x3/uL (130-400); RBC 4.56 10x6/uL (4.20-6.10); RDW 14.7 % (11.5-14.5); WBC 9.1 10x3/uL (4.8-10.8)
[2021-02-23 08:37] LABS: ALBUMIN 3.2 g/dL (3.4-5.0); BILIRUBIN - TOTAL 4.16 mg/dL (0.2-1.3); CALCIUM 8.3 mg/dL (8.5-10.1); CARBON DIOXIDE 28.5 mmol/L (21.0-32.0); CREATININE - SERUM 1.1 mg/dL (0.6-1.3); POTASSIUM - SERUM 3.5 mmol/L (3.5-5.1); PROTEIN - SERUM 6.7 g/dL (6.4-8.2)
[2021-02-23 08:41] LABS: INR 1.82 (0.85-1.17); PROTIME 19.6 SECONDS (11.6-15.0)
--- NOTE | 2021-02-23 08:59 | NUR ---
FAMILY CALLED AND UPDATED.
--- NOTE | 2021-02-23 11:16 | NUR ---
PT PREOPPED. CURRENTLY ON BEDPAN TRYING TO HAVE BM.
--- NOTE | 2021-02-23 12:39 | NUR ---
PT TAKEN BACK TO SURGERY. DENTURES PUT IN CUP AND PLACED ON WINDOW LEDGE.
--- NOTE | 2021-02-23 14:50 | NUR ---
PT BACK FROM SURGERY. [place] DONE. DRESSING TO LEFT FRONTAL HEAD C/D/I. PT DENIES PAIN CURRENTLY. VITAL SIGNS PUT IN PER PROTOCOL. PT ALERT AND ORIENTED.
--- NOTE | 2021-02-23 15:02 | NUR ---
CALLED FAMILY AND UPDATED ON PT'S STATUS.
[2021-02-24] VITALS (19 sets, daily range): BP systolic 89–159; BP diastolic 49–101
[2021-02-24 04:57] LABS: BASOPHILS 0.1 % (0-2); EOSINOPHILS 0 % (0-7); HEMATOCRIT 39.3 % (42.0-54.0); LYMPHOCYTES 7.3 % (15-50); MCV 87.8 fL (80.0-100.0); MEAN PLATELET VOLUME 8.8 fL (7.4-10.4); MONOCYTES 5.6 % (2-11); RBC 4.48 10x6/uL (4.20-6.10); RDW 14.5 % (11.5-14.5)
[2021-02-24 05:03] LABS: PLATELET COUNT 176 10x3/uL (130-400)
[2021-02-24 05:16] LABS: ALBUMIN 3.2 g/dL (3.4-5.0); ANION GAP 15.6 mmol/L (8-16); BILIRUBIN - TOTAL 3.5 mg/dL (0.2-1.3); CALCIUM 8.8 mg/dL (8.5-10.1); CARBON DIOXIDE 25.6 mmol/L (21.0-32.0); CREATININE - SERUM 1.2 mg/dL (0.6-1.3)
[2021-02-24 05:19] LABS: POTASSIUM - SERUM 4.2 mmol/L (3.5-5.1)
--- NOTE | 2021-02-24 08:00 | NUR ---
ALERT AND ORIENTED WITH INTERMITTANT CONFUSION RELATED TO BLOOD SUGAR MONITORING AND INSULIN GIVEN WITH SEVERAL ATTEMPTS TO REDIRECT. HAND GRASP EQUAL. DENIES ANY PAIN OR DISCOMFORT. IV TO LEFT F/A S/L WITH NO S/SOF INFECTION/INFILTRATION. PERRLA WITH DRESSING INTACT TO SCALP.
--- NOTE | 2021-02-24 10:00 | NUR ---
DR. HENSON HERE WITH NO NEW ORDERS NOTED. EPPERSON CATH PATENT WITH DULCE MARIA URINE NOTED. 02 4L N/C. DRESSING TO SCALP INTACT WITH NO CHANGE IN COGNITION. FALL PRECAUTIONS IN PLACE AND MONITORING.
--- NOTE | 2021-02-24 12:00 | NUR ---
FAMILY HERE FOR VISIT WITH INSULIN GIVEN PER PROTOCOL. DRESSING TO SCALP INTACT. DENEIS ANY PAIN OR DISCOMFORT.
--- NOTE | 2021-02-24 14:00 | NUR ---
ASSITED ON BED PAIN W/O RESULTS. CONTINUED CRITICAL CARE MONITORING AND DENIES ANY NEEDS. ENCOURAGED TO USE CALL LIGHT FOR ASSIST
--- NOTE | 2021-02-24 16:00 | NUR ---
NO CHANGE IN COGNITION. ASSISTED TO BED ESQUEDA W/O BM. DECREASE AGITIATION NOTED AND COOPERATIVE. CONTINUED CRITIAL CARE
--- NOTE | 2021-02-24 18:02 | NUR ---
DR. HENSON NOTIFIED OF PATIENT CONDITION WITH ORDER TO TRANSFER TO FLOOR. REPORT CALLED TO ADRIANA ZARAGOZA AT TIME OF TRANSFER.
[2021-02-25] VITALS: BP 113/71
--- NOTE | 2021-02-25 03:00 | NUR ---
I have reviewed this patient and I concur with the Shift Assessment completed by the Licensed Practical Nurse today this shift.
[2021-02-25 04:00] VITALS: BP 139/82
[2021-02-25 06:23] LABS: BASOPHILS 0.4 % (0-2); EOSINOPHILS 1.3 % (0-7); HEMATOCRIT 37.8 % (42.0-54.0); HEMOGLOBIN 12.5 g/dL (13.5-17.5); LYMPHOCYTES 17.7 % (15-50); MCV 87.9 fL (80.0-100.0); MONOCYTES 9.7 % (2-11); NEUTROPHILS 70.9 % (40-80); PLATELET COUNT 187 10x3/uL (130-400); RDW 14.5 % (11.5-14.5); WBC 9.4 10x3/uL (4.8-10.8)
[2021-02-25 06:32] LABS: ANION GAP 10.8 mmol/L (8-16); BILIRUBIN - TOTAL 2.14 mg/dL (0.2-1.3); CALCIUM 8.4 mg/dL (8.5-10.1); CREATININE - SERUM 1.1 mg/dL (0.6-1.3); POTASSIUM - SERUM 3.8 mmol/L (3.5-5.1); PROTEIN - SERUM 6.5 g/dL (6.4-8.2)
[2021-02-25 08:27] VITALS: BP 139/75
--- NOTE | 2021-02-25 09:00 | NUR ---
ASSESSMENT PER FLOW SHEET. PATIENT IS WITHOUT DISTRESS.FALL PREVENTION WITH BED ALARM. DOOR OPEN.
--- NOTE | 2021-02-25 11:37 | NUR ---
REHAB PRESCREEN RECEIVED. PATIENTS PHYSICAL THERAPY EVAL IS PENDING. I WILL LOOK BACK IN LATER TO SEE IF COMPLETED AND FINISH HIS CHART SCREEN. IF APPROPRIATE, I WILL START HIS ELECTRONIC SCREEN. THANK YOU FOR THE REFERRAL. PADMA LOAIZA RN CLINICAL LIAISON, INPATIENT REHAB.
[2021-02-25 13:02] VITALS: BP 159/67
[2021-02-25 17:27] VITALS: BP 118/86
--- NOTE | 2021-02-25 17:56 | NUR ---
EPPERSON DC'D WITH 900CC OF YELLOW URINE IN BAG. CATH TIP INTACT.
[2021-02-25 20:00] VITALS: BP 125/74
[2021-02-26] VITALS: BP 128/72
--- NOTE | 2021-02-26 03:00 | NUR ---
I have reviewed this patient and I concur with the Shift Assessment completed by the Licensed Practical Nurse today this shift.
[2021-02-26 04:00] VITALS: BP 84/60
[2021-02-26 06:10] LABS: BASOPHILS 0.5 % (0-2); EOSINOPHILS 4.4 % (0-7); HEMOGLOBIN 12.6 g/dL (13.5-17.5); LYMPHOCYTES 22.3 % (15-50); MCH 28.5 pg (26.0-34.0); MCHC 32.4 g/dL (31.0-37.0); MCV 88.1 fL (80.0-100.0); MEAN PLATELET VOLUME 8.4 fL (7.4-10.4); MONOCYTES 13.6 % (2-11); NEUTROPHILS 59.2 % (40-80); PLATELET COUNT 185 10x3/uL (130-400); RBC 4.42 10x6/uL (4.20-6.10); RDW 14.8 % (11.5-14.5)
[2021-02-26 06:32] LABS: ALBUMIN 2.9 g/dL (3.4-5.0); ANION GAP 10.1 mmol/L (8-16); BILIRUBIN - TOTAL 2.16 mg/dL (0.2-1.3); CALCIUM 8.4 mg/dL (8.5-10.1); CARBON DIOXIDE 30.8 mmol/L (21.0-32.0); CREATININE - SERUM 1.1 mg/dL (0.6-1.3); MAGNESIUM - SERUM 2.1 mg/dL (1.8-2.4); POTASSIUM - SERUM 3.9 mmol/L (3.5-5.1); PROTEIN - SERUM 6.3 g/dL (6.4-8.2)
[2021-02-26 09:25] VITALS: BP 151/79
[2021-02-26 12:45] VITALS: BP 130/77
--- NOTE | 2021-02-26 13:50 | MORECARE ---
CASE MANAGEMENT DISCHARGE SUMMARY PATIENT: JOHNY LECHUGA UNIT: [id number] ADM DATE: 02/22/21 AGE: 80 : 42 SEX: M ROOM/BED: D.2239 AUTHOR: BERTIN,DOC PHYSICIAN: REFERRING PHYSICIAN: STUART CARVALHO MD DATE OF SERVICE: 02/26/21 Case Management Discharge Planning Summary COMMENTS ENTERED DATE: 02/26/21 13:47 CT COMMENT TYPE: Discharge Planning REVIEWER: Jenni Alvarenga CM met with patient at bedside after obtaining verbal consent. CM discussed availability / needs of home health, REHAB and medical equipment. Patient states his daughter is bringing him a walker. He would like home health with [place]. Order faxed to [place]. IMM signed and copy on chart. Patient to [facility] today. DCP REVIEW SUMMARY ANTICIPATED D/C DATE: EXPECTED LOS : CASE STATUS: DCP Initiated INITIAL REVIEW: 02/22/2021 INITIAL REVIEWER: Jenni Alvarenga FINAL DISCHARGE DISPOSITION: : FINAL REVIEWER: FINAL REVIEW DATE: DCP Focus Questions & Answers DCP Screen QUESTION: ANSWER High Risk Factors: : Poor social support DCP Evaluation QUESTION: ANSWER Patient's ability to cope with chronic illness : d. No chronic illness Would patient like to participate in any Care Coordination programs (if applicable): : Not applicable Mental health screen: : No mental health history DCP Re-evaluation QUESTION: ANSWER Would patient like to participate in any Care Coordination programs (if applicable): : Not applicable PROVIDER NETWORKING REVIEW DATE: 02/26/2021 SERVICE TYPE: Home Health Care REVIEWER: Jenni Alvarenga PATIENT: JOHNY LECHUGA ENCOUNTER: [id number] MEDICAL RECORD#: [id number] ADMISSION DATE: 02/22/2021 DISCHARGE DATE: ATTENDING MD: : AGE: 80 MARITAL STATUS: M DC PLAN ID: [id number] FACILITY: [facility] PRINTED ON: 02/26/21 13:49 CT All edits/amendments must be made on the electronic document DICTATION DATE: 02/26/211348 COMPUTER MECHANIC: IKE 02/26/21 1349 RPT#: [id number] DC DATE: STATUS: ADM IN [facility] [address] [place] [address] END OF REPORT
--- NOTE | 2021-02-26 14:13 | NUR ---
DISCHARGE INSTRUCTIONS REVIEWED AND SIGNED WITH PT, ALL QUESTIONS ANSWERED, PT VERBALIZES UNDERSTANDING, IV REMOVED, TIP INTACT, PT TOLERATED WELL, PT GETTING DRESSED, WAITING FOR FAMILY TO PICK HIM UP AND GET HIM A WALKER FOR HOME
--- NOTE | 2021-02-26 16:57 | MORECARE ---
CASE MANAGEMENT DISCHARGE SUMMARY PATIENT: JOHNY LECHUGA UNIT: [id number] ADM DATE: 02/22/21 AGE: 80 : 42 SEX: M ROOM/BED: D.2239 AUTHOR: BERTIN,DOC PHYSICIAN: REFERRING PHYSICIAN: STUART CARVALHO MD DATE OF SERVICE: 02/26/21 Case Management Discharge Planning Summary COMMENTS ENTERED DATE: 02/26/21 13:47 CT COMMENT TYPE: Discharge Planning REVIEWER: Jenni Alvarenga CM met with patient at bedside after obtaining verbal consent. CM discussed availability / needs of home health, REHAB and medical equipment. Patient states his daughter is bringing him a walker. He would like home health with [place]. Order faxed to [place]. IMM signed and copy on chart. Patient to ct today. DCP REVIEW SUMMARY ANTICIPATED D/C DATE: EXPECTED LOS : CASE STATUS: DCP Initiated INITIAL REVIEW: 02/22/2021 INITIAL REVIEWER: Jenni Alvarenga FINAL DISCHARGE DISPOSITION: : FINAL REVIEWER: FINAL REVIEW DATE: DCP Focus Questions & Answers DCP Screen QUESTION: ANSWER High Risk Factors: : Poor social support DCP Evaluation QUESTION: ANSWER Patient's ability to cope with chronic illness : d. No chronic illness Would patient like to participate in any Care Coordination programs (if applicable): : Not applicable Mental health screen: : No mental health history DCP Re-evaluation QUESTION: ANSWER Would patient like to participate in any Care Coordination programs (if applicable): : Not applicable PROVIDER NETWORKING REVIEW DATE: 02/26/2021 SERVICE TYPE: Home Health Care REVIEWER: Jenni Alvarenga PATIENT: JOHNY LECHUGA ENCOUNTER: [id number] MEDICAL RECORD#: [id number] ADMISSION DATE: 02/22/2021 DISCHARGE DATE: 02/26/2021 ATTENDING MD: : AGE: 80 MARITAL STATUS: M DC PLAN ID: [id number] FACILITY: [facility] PRINTED ON: 02/26/21 16:57 CT All edits/amendments must be made on the electronic document DICTATION DATE: 02/26/211656 SYSTEM SPECIALIST: IKE 02/26/211656 RPT#: [id number] DC DATE:02/26/21 STATUS: DIS IN [facility] [address] [place] [address] END OF REPORT
--- NOTE | 2021-02-27 08:07 | MORECARE ---
CASE MANAGEMENT DISCHARGE SUMMARY PATIENT: JOHNY LECHUGA UNIT: [id number] ADM DATE: 02/22/21 AGE: 80 : 42 SEX: M ROOM/BED: D.2239 AUTHOR: BERTIN,DOC PHYSICIAN: REFERRING PHYSICIAN: STUART CARVALHO MD DATE OF SERVICE: 02/27/21 Case Management Discharge Planning Summary COMMENTS ENTERED DATE: 02/26/21 13:47 CT COMMENT TYPE: Discharge Planning REVIEWER: Jenni Alvarenga CM met with patient at bedside after obtaining verbal consent. CM discussed availability / needs of home health, REHAB and medical equipment. Patient states his daughter is bringing him a walker. He would like home health with [place]. Order faxed to [place]. IMM signed and copy on chart. Patient to me today. DCP REVIEW SUMMARY ANTICIPATED D/C DATE: EXPECTED LOS : CASE STATUS: DCP Initiated INITIAL REVIEW: 02/22/2021 INITIAL REVIEWER: Jenni Alvarenga FINAL DISCHARGE DISPOSITION: : FINAL REVIEWER: FINAL REVIEW DATE: DCP Focus Questions & Answers DCP Screen QUESTION: ANSWER High Risk Factors: : Poor social support DCP Evaluation QUESTION: ANSWER Patient's ability to cope with chronic illness : d. No chronic illness Would patient like to participate in any Care Coordination programs (if applicable): : Not applicable Mental health screen: : No mental health history DCP Re-evaluation QUESTION: ANSWER Would patient like to participate in any Care Coordination programs (if applicable): : Not applicable PROVIDER NETWORKING REVIEW DATE: 02/26/2021 SERVICE TYPE: Home Health Care REVIEWER: Jenni Alvarenga PATIENT: JOHNY LECHUGA ENCOUNTER: [id number] MEDICAL RECORD#: [id number] ADMISSION DATE: 02/22/2021 DISCHARGE DATE: 02/26/2021 ATTENDING MD: : AGE: 80 MARITAL STATUS: M DC PLAN ID: [id number] FACILITY: [facility] PRINTED ON: 02/27/21 8:07 CT All edits/amendments must be made on the electronic document DICTATION DATE: 02/27/21806 STONE SETTER METAL OPTICAL FRAMES: IKE 02/27/21806 RPT#: [id number] DC DATE:02/26/21 STATUS: DIS IN [place] [place] [id number] [place] [address] END OF REPORT
--- NOTE | 2021-03-01 12:11 | MORECARE ---
CASE MANAGEMENT DISCHARGE SUMMARY PATIENT: JOHNY LECHUGA UNIT: [id number] ADM DATE: 02/22/21 AGE: 80 : 42 SEX: M ROOM/BED: D.2239 AUTHOR: BERTIN,DOC PHYSICIAN: REFERRING PHYSICIAN: STUART CARVALHO MD DATE OF SERVICE: 03/01/21 Case Management Discharge Planning Summary COMMENTS ENTERED DATE: 02/26/21 13:47 CT COMMENT TYPE: Discharge Planning REVIEWER: Jenni Alvarenga CM met with patient at bedside after obtaining verbal consent. CM discussed availability / needs of home health, REHAB and medical equipment. Patient states his daughter is bringing him a walker. He would like home health with [place]. Order faxed to [place]. IMM signed and copy on chart. Patient to [facility] today. DCP REVIEW SUMMARY ANTICIPATED D/C DATE: EXPECTED LOS : CASE STATUS: DCP Initiated INITIAL REVIEW: 02/22/2021 INITIAL REVIEWER: Jenni Alvarenga FINAL DISCHARGE DISPOSITION: : FINAL REVIEWER: FINAL REVIEW DATE: DCP Focus Questions & Answers DCP Screen QUESTION: ANSWER High Risk Factors: : Poor social support DCP Evaluation QUESTION: ANSWER Patient's ability to cope with chronic illness : d. No chronic illness Would patient like to participate in any Care Coordination programs (if applicable): : Not applicable Mental health screen: : No mental health history DCP Re-evaluation QUESTION: ANSWER Would patient like to participate in any Care Coordination programs (if applicable): : Not applicable PROVIDER NETWORKING REVIEW DATE: 02/26/2021 SERVICE TYPE: Home Health Care REVIEWER: Jenni Alvarenga PATIENT: JOHNY LECHUGA ENCOUNTER: [id number] MEDICAL RECORD#: [id number] ADMISSION DATE: 02/22/2021 DISCHARGE DATE: 02/26/2021 ATTENDING MD: : AGE: 80 MARITAL STATUS: M DC PLAN ID: [id number] FACILITY: [facility] PRINTED ON: 03/01/21 12:11 CT All edits/amendments must be made on the electronic document DICTATION DATE: 03/01/211210 TECHNOLOGY SALES CONSULTANT: IKE 03/01/21 121 RPT#: [id number] DC DATE:02/26/21 STATUS: DIS IN [facility] [address] [place] [address] END OF REPORT
--- NOTE | 2021-03-01 14:37 | OP ---
PATIENT NAME: JOHNY LECHUGA MEDICAL RECORD: [id number] :44 LOCATION:[id number] ADMISSION DATE:02/22/21 SURGEON: GOLDY HENSON MD DATE OF OPERATION: 02/23/2021 PREOPERATIVE DIAGNOSIS: Left frontoparietal subacute subdural hematoma. POSTOPERATIVE DIAGNOSIS: Left frontoparietal subacute subdural hematoma. PROCEDURE: Left frontal blanca hole for evacuation of a left frontal blanca hole subdural hematoma. DESCRIPTION OF TECHNIQUE: After induction of general endotracheal anesthesia, the patient was positioned supine on the operating table. Scalp was prepped and draped in the usual sterile fashion. After infiltration of 1:100,000 epinephrine with 1% lidocaine, an incision was carried out at the left superior temporal line. A blanca holes were created with the [employer] Rakesh drill. The dura was opened in a cruciate manner with a bipolar cautery and #11 blade. There was brisk egress of subacute subdural hematoma fluid from the subdural space. Subdural space was irrigated until it was crystal clear with lukewarm saline irrigant solution. The galea was reapproximated with interrupted 2-0 Vicryl suture. The skin was closed with shaunna. A sterile dressing was applied to the wound. The patient was awakened in good condition and taken to recovery. All counts were reported as correct. Estimated blood loss was minimal. TRANSINT:[id number] Voice Confirmation ID: [id number] DOCUMENT ID: [id number] 03/01/2021 Edited to correct date of service, dmm. GOLDY HENSON MD at 1437 CC: [id number] DICTATION DATE: 02/26/21929 SLAT BASKET MAKER HELPER MACHINE: 02/26/21942 DIS IN 02/26/21 [place] [id number] [place] [id number]
== END 2021-02-26 16:50 | disposition home health service (06) | DRG 25 ==
LOC: D.ER 22:52 → D.EDHOLD 23:49 → D.ICU 23:49 → D.MS 23:49 → D.EDHOLD 23:50 → D.ICU 02-23 02:46 → D.MS 02-24 18:26
PROVIDERS: Family Medicine; Neurological Surgery; ADMIT Family Medicine; ATTEND Family Medicine
PROC: 00940ZZ Drainage of Intracranial Subdural Space, Open Approach (ICD-10-PCS; principal; 2021-02-23 13:30)
DX: I62.00 Nontraumatic subdural hemorrhage, unspecified (principal); G93.6 Cerebral edema; D64.9 Anemia, unspecified; E87.8 Other disorders of electrolyte and fluid balance, not elsewhere classified; E11.9 Type 2 diabetes mellitus without complications; I10 Essential (primary) hypertension; E78.5 Hyperlipidemia, unspecified; I48.91 Unspecified atrial fibrillation; Z79.01 Long term (current) use of anticoagulants; I25.10 Atherosclerotic heart disease of native coronary artery without angina pectoris; G47.33 Obstructive sleep apnea (adult) (pediatric); Z85.51 Personal history of malignant neoplasm of bladder; K59.00 Constipation, unspecified

== ENCOUNTER 2021-03-04 12:40 | Emergency (ER) | payer MEDICARE, BC ==
[~2021-03-04] VITALS: Ht 195.6 cm; Wt 132.7 kg
[~2021-03-04 12:40] MED LIST changes: +ISOSORBIDE MONO30 M1 PO; +LIPITOR10 MG PO; +PLAVIX75 MG PO
[2021-03-04 12:57] VITALS: Ht 195.6 cm; Wt 132.7 kg
[2021-03-04 13:52] LABS: BASOPHILS 0.7 % (0-2); EOSINOPHILS 2.2 % (0-7); HEMATOCRIT 41.8 % (42.0-54.0); HEMOGLOBIN 13.6 g/dL (13.5-17.5); LYMPHOCYTES 19.1 % (15-50); MCH 28.5 pg (26.0-34.0); MCHC 32.5 g/dL (31.0-37.0); MCV 87.7 fL (80.0-100.0); MEAN PLATELET VOLUME 8.2 fL (7.4-10.4); MONOCYTES 8.8 % (2-11); NEUTROPHILS 69.2 % (40-80); PLATELET COUNT 208 10x3/uL (130-400); RBC 4.76 10x6/uL (4.20-6.10); WBC 8.1 10x3/uL (4.8-10.8)
[2021-03-04 13:58] LABS: APTT 31.4 SECONDS (22.8-39.4); INR 1.26 (0.85-1.17); PROTIME 14.6 SECONDS (11.6-15.0)
[2021-03-04 14:00] LABS: CALC OSMOLALITY 289 mosm/kg (275-300); CALCIUM 8.9 mg/dL (8.5-10.1); CARBON DIOXIDE 32.9 mmol/L (21.0-32.0); CHLORIDE - SERUM 105 mmol/L (98-107); CREATININE - SERUM 1.2 mg/dL (0.6-1.3); GLUCOSE 169 mg/dL (74-106); POTASSIUM - SERUM 3.9 mmol/L (3.5-5.1); SODIUM 144 mmol/L (136-145); UREA NITROGEN 10 mg/dL (7-18); eGFR NON AFRICAN AMERICAN 62 mL/min (90-120)
[2021-03-04 14:16] LABS: ALBUMIN 3.3 g/dL (3.4-5.0); ALKALINE PHOSPHATASE 89 U/L (30-120); ALT (SGPT) 28 U/L (10-68); BILIRUBIN - TOTAL 1.89 mg/dL (0.2-1.3); CKMB 0.5 U/L (0.0-3.6); CREATINE KINASE 32 UL (21-232); THYROID STIMULATING HORMONE 0.67 uIU/mL (0.36-3.74)
[2021-03-04 14:22] LABS: TROPONIN-I < 0.017 ng/mL (0.000-0.060)
[2021-03-04 15:03] LABS: SARS-CoV-2 ANTIGEN NEGATIVE- SARS-COV-2 (NEGATIVE)
[2021-03-04 15:10] VITALS: BP 131/86
== END 2021-03-04 14:42 ==
LOC: D.ER 12:40
PROVIDERS: Family Medicine
DX: S06.5X9A Traumatic subdural hemorrhage with loss of consciousness of unspecified duration, initial encounter (principal); R41.82 Altered mental status, unspecified; E11.9 Type 2 diabetes mellitus without complications; Z79.84 Long term (current) use of oral hypoglycemic drugs; X58.XXXA Exposure to other specified factors, initial encounter